=== PATIENT | male | born 1975 | race African-American/Black ===

== ENCOUNTER 2017-10-26 15:52 | Emergency (ER) | payer OTHER ==
[~2017-10-26] VITALS: Ht 175.3 cm; Wt 72.0 kg
[2017-10-26] MEDS: POTASSIUM CHLORIDE 8 MEQ TABLET.SA PO SCH (01:53)
[~2017-10-26 15:52] MED LIST: ACET-3161 PO; AMLO10TA80 PO; CIPR-213 PO; PANT20TA3 PO
[2017-10-26] MEDS ORDERED: SODIUM CHLORIDE 0.9% 1,000 ML IV ONE (17:04)
[2017-10-26] MEDS ORDERED: KETOROLAC 30MG/ML VIAL IV STA (17:04)
[2017-10-26] MEDS ORDERED: MORPHINE SULFATE 4 MG/ML CPJ (NOT FOR IM USE) IV STA (17:04)
[2017-10-26] MEDS ORDERED: ONDANSETRON HCL 4MG/2ML VIAL IV STA (17:04)
[2017-10-26] MEDS ORDERED: LIDOCAINE HCL 1%/EPI 1:200,000 30 ML VIAL MC ONE (17:15)
[2017-10-26] MEDS ORDERED: LIDOCAINE/EPINEPHR/TETRACAINE 3ML TP ONE (17:15)
[2017-10-26] MEDS ORDERED: TETANUS, DIPHTHERIA, PERTUSSIS VAC/PF 0.5ML (>7YR OLD) IM ONE (17:15)
[2017-10-26] MEDS ORDERED: BACITRACIN ZINC OINT UDPKT TOP ONE (17:15)
[2017-10-26] MEDS ORDERED: VANCOMYCIN 1 G PREMIX 200 ML IV ONE (17:15)
[2017-10-26] MEDS ORDERED: PIPERACILLIN/TAZ 3.375G PREMIX 50 ML IV ONE (17:15)
[2017-10-26] MEDS ORDERED: LEVOFLOXACIN 750MG PREMIX 150 ML IV ONE (17:45)
[2017-10-26 19:05] LABS: HEMATOCRIT. 32.6 % (42.0-52.0); HEMOGLOBIN. 10.6 g/dL (14.0-18.0); MEAN CORPUSCULAR HEMOGLOBIN 29.2 pg (28.0-32.0); MEAN CORPUSCULAR VOLUME 89.9 fL (80.0-94.0); MEAN PLATELET VOLUME 8.7 fl (7.4-10.4); PLATELET 328 x1000/uL (130-400); RED BLOOD CELL COUNT 3.63 mill/uL (4.7-6.1); RED CELL DISTRIBUTION WIDTH 13.9 % (11.6-14.6)
[2017-10-26 19:07] LABS: CHLORIDE 100 mEq/L (98-107)
[2017-10-26 19:17] LABS: ETHANOL BLOOD < 10 mg/dL
[2017-10-26] MEDS ORDERED: MORPHINE SULFATE 4 MG/ML CPJ (NOT FOR IM USE) IV ONE ×2 (19:45→21:00)
[2017-10-26 20:48] LABS: PLATELET ESTIMATE NORMAL
[2017-10-26 20:51] LABS: INR 1.2; PROTHROMBIN TIME 12.9 sec (9.4-11.6)
[2017-10-27] MEDS: POTASSIUM CHLORIDE 8 MEQ TABLET.SA PO SCH ×2 (01:53→03:09)
[2017-10-27] MEDS ORDERED: MORPHINE SULFATE 4 MG/ML CPJ (NOT FOR IM USE) IV ONE ×2 (02:00→06:00)
[2017-10-27] MEDS ORDERED: ONDANSETRON HCL 4MG/2ML VIAL IV ONE ×2 (02:00→06:00)
[2017-10-27 06:35] VITALS: BP 119/79
[2017-10-27 06:40] LABS: CLARITY URINE CLEAR (CLEAR); COLOR URINE YELLOW (YELLOW); KETONES URINE 2+ (NEGATIVE); LEUKOCYTE ESTERASE URINE NEGATIVE (NEGATIVE); NITRITE URINE NEGATIVE (NEGATIVE); OCCULT BLOOD URINE NEGATIVE (NEGATIVE); PROTEIN URINE TRACE (NEGATIVE); SPECIFIC GRAVITY URINE 1.023 (1.005-1.030)
[2017-10-27 07:04] LABS: *AMPHETAMINES SCREEN URINE NEGATIVE (NEGATIVE); *BARBITURATES SCREEN URINE NEGATIVE (NEGATIVE); *BENZODIAZEPINES SCREEN URINE NEGATIVE (NEGATIVE); *COCAINE SCREEN URINE NEGATIVE (NEGATIVE); CANNABINOID URINE SCREEN PRESUMTIVE POSITIVE (NEGATIVE); METHADONE URINE SCREEN NEGATIVE (NEGATIVE); OPIATES URINE SCREEN PRESUMTIVE POSITIVE (NEGATIVE)
[2017-10-27 07:05] LABS: PHENCYCLIDINE URINE SCREEN NEGATIVE (NEGATIVE)
== END 2017-10-27 06:40 | disposition short-term general hospital (02) ==
LOC: ER 16:22
DX: L02.01 Cutaneous abscess of face (principal); M27.2 Inflammatory conditions of jaws; D72.829 Elevated white blood cell count, unspecified; I10 Essential (primary) hypertension; E11.9 Type 2 diabetes mellitus without complications; Z88.6 Allergy status to analgesic agent; Z75.1 Person awaiting admission to adequate facility elsewhere
CPT/HCPCS: 10061; 36415; 70486; 80053; 80305; 81003; 82962; 83605; 83690; 84484; 85025; 85610; 87040; 87086; 90471; 90715; 93005; 96365; 96366; 96367; 96375; 96376; 99285; G0482; J1885; J1956; J2270; J2405; J2543; J3370; J7030; Z7610

== ENCOUNTER 2018-05-30 11:29 | Inpatient (IN) | payer OTHER ==
[~2018-05-30] VITALS: Ht 167.6 cm; Wt 66.7 kg
[2018-05-30 12:53] LABS: MEAN CORPUSCULAR VOLUME 59.2 fL (80.0-94.0); MEAN PLATELET VOLUME 6.6 fl (7.4-10.4); PLATELET 423 x1000/uL (130-400); RED BLOOD CELL COUNT 2.14 mill/uL (4.7-6.1); RED CELL DISTRIBUTION WIDTH 17.7 % (11.6-14.6)
[2018-05-30 12:57] LABS: CHLORIDE 105 mEq/L (98-107)
[2018-05-30 12:59] LABS: HEMATOCRIT. 12.7 % (42.0-52.0); HEMOGLOBIN. 3.6 g/dL (14.0-18.0); INR 1.1; PARTIAL THROMBOPLASTIN TIME 24.2 sec (23.4-31.0); PROTHROMBIN TIME 11.2 sec (9.1-11.1)
[2018-05-30 13:15] LABS: NUCLEATED RED BLOOD CELLS 2 /100 WBC
[2018-05-30 13:16] LABS: PLATELET ESTIMATE SLIGHTLY INCREASED
[2018-05-30] MEDS ORDERED: ONDANSETRON HCL 4MG/2ML INJ IV STA (13:16)
[2018-05-30] MEDS ORDERED: MORPHINE SULFATE 4 MG/ML CPJ (NOT FOR IM USE) IV STA (13:16)
[2018-05-30] MEDS ORDERED: PANTOPRAZOLE SODIUM 40 MG/VIAL IV STA (13:16)
[2018-05-30 13:25] LABS: TOTAL IRON BINDING CAPACITY 384 ug/dL (250-450)
[2018-05-30] MEDS ORDERED: LORAZEPAM 2MG/ML CPJ IV PRN (13:30)
[2018-05-30] MEDS ORDERED: GUAIFENESIN 200MG/10ML SUGAR FREE UDC PO PRN (13:30)
[2018-05-30] MEDS ORDERED: ACETAMINOPHEN 325MG TABLET PO PRN (13:30)
[2018-05-30] MEDS ORDERED: DOCUSATE SODIUM 100MG CAPSULE PO PRN (13:30)
[2018-05-30] MEDS ORDERED: MAGNESIUM/ALUMINUM HYDROXIDE/SIMETHICONE 30ML UDC PO PRN (13:30)
[2018-05-30] MEDS ORDERED: CLONIDINE 0.1MG TABLET PO PRN (13:30)
[2018-05-30] MEDS ORDERED: ONDANSETRON HCL 4MG/2ML INJ IV PRN (13:30)
[2018-05-30] MEDS ORDERED: IPRATROPIUM/ALBUTEROL 0.5-3(2.5)MG/3ML NEB INH PRN (13:30)
[2018-05-30] MEDS ORDERED: NA PHOS,M-B/NA PHOS,DI-BA ENEMA 118ML PR PRN (13:30)
[2018-05-30] MEDS ORDERED: BISACODYL 5MG TABLET PO PRN (16:30)
[2018-05-30] MEDS: MORPHINE SULFATE 4 MG/ML CPJ (NOT FOR IM USE) IV PRN (18:04)
[2018-05-30 22:00] VITALS: BP 112/84
[2018-05-30] MEDS ORDERED: METOCLOPRAMIDE HCL 5MG TABLET PO NR (22:00)
[2018-05-30] MEDS ORDERED: SORBITOL 70% SOLN 30ML PO NR (22:00)
[2018-05-30] MEDS ORDERED: BISACODYL 5MG TABLET PO NR (22:00)
[2018-05-30 22:39] VITALS: BP 117/76
[2018-05-30] MEDS: DIPHENHYDRAMINE 50MG/ML VIAL IV PRN (22:57)
[2018-05-30] MEDS: HYDROCODONE/ACETAMINOPHEN 5/325MG TABLET PO PRN (22:57)
[2018-05-30] MEDS: PANTOPRAZOLE SODIUM 40 MG/VIAL IV SCH (22:57)
[2018-05-30] MEDS: SODIUM CHLORIDE 0.45% 1,000 ML IV SCH (22:57)
[2018-05-31] VITALS (19 sets, daily range): BP systolic 112–130; BP diastolic 56–85
[2018-05-31 00:31] LABS: MEAN CORPUSCULAR VOLUME 69.3 fL (80.0-94.0); MEAN PLATELET VOLUME 6.9 fl (7.4-10.4); PLATELET 355 x1000/uL (130-400); RED CELL DISTRIBUTION WIDTH 29.4 % (11.6-14.6)
[2018-05-31 00:44] LABS: HEMATOCRIT. 18.1 % (42.0-52.0)
[2018-05-31 00:52] LABS: HEMOGLOBIN. 5.5 g/dL (14.0-18.0)
[2018-05-31] MEDS: MORPHINE SULFATE 4 MG/ML CPJ (NOT FOR IM USE) IV PRN ×4 (01:23→21:48)
[2018-05-31] MEDS ORDERED: BISACODYL 5MG TABLET PO NR ×2 (02:00→11:45)
[2018-05-31] MEDS ORDERED: METOCLOPRAMIDE HCL 5MG TABLET PO NR (02:00)
[2018-05-31] MEDS ORDERED: SORBITOL 70% SOLN 30ML PO NR ×2 (02:00→11:45)
[2018-05-31] MEDS ORDERED: ASPI-1158 PO (05:43)
[2018-05-31] MEDS ORDERED: GLIP5TAB12 PO (05:43)
[2018-05-31] MEDS ORDERED: METF-416 PO (05:43)
[2018-05-31 07:31] LABS: INR 1.1; PARTIAL THROMBOPLASTIN TIME 23.6 sec (23.4-31.0); PROTHROMBIN TIME 11.1 sec (9.1-11.1)
[2018-05-31 07:37] LABS: HEMATOCRIT. 24.3 % (42.0-52.0); HEMOGLOBIN. 7.7 g/dL (14.0-18.0); MEAN CORPUSCULAR HEMOGLOBIN 23.5 pg (28.0-32.0); MEAN CORPUSCULAR VOLUME 73.8 fL (80.0-94.0); MEAN PLATELET VOLUME 7.5 fl (7.4-10.4); PLATELET 432 x1000/uL (130-400); RED BLOOD CELL COUNT 3.29 mill/uL (4.7-6.1); RED CELL DISTRIBUTION WIDTH 28.8 % (11.6-14.6)
[2018-05-31 07:43] LABS: CHLORIDE 113 mEq/L (98-107)
[2018-05-31 07:45] LABS: CHLORIDE 113 mEq/L (98-107)
[2018-05-31 07:54] LABS: HDL CHOLESTEROL 38 mg/dL (40-59)
[2018-05-31 07:55] LABS: LDL CHOLESTEROL 90 mg/dL (5-100)
[2018-05-31] MEDS: PANTOPRAZOLE SODIUM 40 MG/VIAL IV SCH ×2 (08:23→21:47)
[2018-05-31] MEDS: IRON SUCROSE COMPLEX 100 MG/5 ML ML IV SCH (08:24)
[2018-05-31] MEDS ORDERED: METOCLOPRAMIDE HCL 10MG/2ML VIAL IV NR ×2 (11:45→13:00)
[2018-05-31] MEDS: DIPHENHYDRAMINE 50MG/ML VIAL IV PRN ×2 (12:25→18:22)
[2018-05-31] MEDS: SODIUM CHLORIDE 0.45% 1,000 ML IV SCH (21:47)
[2018-06-01] VITALS (11 sets, daily range): BP systolic 112–132; BP diastolic 40–87
[2018-06-01] MEDS: MORPHINE SULFATE 4 MG/ML CPJ (NOT FOR IM USE) IV PRN ×5 (01:49→21:39)
[2018-06-01 06:53] LABS: CHLORIDE 105 mEq/L (98-107)
[2018-06-01 07:08] LABS: HEMATOCRIT. 25.3 % (42.0-52.0); HEMOGLOBIN. 8.1 g/dL (14.0-18.0); MEAN CORPUSCULAR HEMOGLOBIN 24.4 pg (28.0-32.0); MEAN CORPUSCULAR VOLUME 75.9 fL (80.0-94.0); MEAN PLATELET VOLUME 7.7 fl (7.4-10.4); PLATELET 336 x1000/uL (130-400); RED BLOOD CELL COUNT 3.33 mill/uL (4.7-6.1); RED CELL DISTRIBUTION WIDTH 30.7 % (11.6-14.6)
[2018-06-01] MEDS ORDERED: POTASSIUM CHLORIDE 20MEQ/PACKET PO SCH (07:45)
[2018-06-01] MEDS: PANTOPRAZOLE SODIUM 40 MG/VIAL IV SCH ×2 (08:01→20:05)
[2018-06-01] MEDS: IRON SUCROSE COMPLEX 100 MG/5 ML ML IV SCH (08:01)
[2018-06-01] MEDS: DEXT 5%/0.9% NACL 1,000 ML IV SCH ×2 (08:01→17:45)
[2018-06-01] MEDS: DIPHENHYDRAMINE 50MG/ML VIAL IV PRN ×4 (09:57→21:38)
[2018-06-01] MEDS ORDERED: SIMETHICONE 40 MG/0.6 ML 30ML ONE (10:26)
[2018-06-01] MEDS ORDERED: FENTANYL CITRATE/PF 50MCG/ML 2ML VIAL ONE (10:50)
[2018-06-01] MEDS ORDERED: PROPOFOL 200MG/20ML VIAL IV ONE ×2 (10:51→11:03)
[2018-06-01] MEDS ORDERED: MIDAZOLAM HCL 2 MG/2 ML VIAL ONE (10:51)
[2018-06-01 13:18] LABS: PLATELET ESTIMATE INCREASED
[2018-06-01 14:07] LABS: NUCLEATED RED BLOOD CELLS 2 /100 WBC; PLATELET ESTIMATE NORMAL
[2018-06-01 19:45] LABS: PLATELET ESTIMATE NORMAL
[2018-06-01 20:10] LABS: AMYLASE 53 IU/L (25-115)
[2018-06-02] VITALS (11 sets, daily range): BP systolic 101–137; BP diastolic 53–79
[2018-06-02] MEDS: DIPHENHYDRAMINE 50MG/ML VIAL IV PRN ×5 (03:08→20:38)
[2018-06-02] MEDS: MORPHINE SULFATE 4 MG/ML CPJ (NOT FOR IM USE) IV PRN ×2 (03:12→08:22)
[2018-06-02] MEDS: DEXT 5%/0.9% NACL 1,000 ML IV SCH (03:45)
[2018-06-02] MEDS: IRON SUCROSE COMPLEX 100 MG/5 ML ML IV SCH (08:21)
[2018-06-02] MEDS: PANTOPRAZOLE SODIUM 40 MG/VIAL IV SCH ×2 (08:21→20:38)
[2018-06-02] MEDS: HYDROCODONE/ACETAMINOPHEN 5/325MG TABLET PO PRN (12:29)
[2018-06-02] MEDS: HYDROCODONE/ACETAMINOPHEN 10/325MG TABLET PO PRN ×2 (16:28→20:42)
[2018-06-02 19:37] LABS: HEMATOCRIT 25.9 % (42.0-52.0); HEMOGLOBIN 8.3 g/dL (14.0-18.0); MEAN CORPUSCULAR HEMOGLOBIN 24.6 pg (28.0-32.0); PLATELET 354 x1000/uL (130-400); RED BLOOD CELL COUNT 3.36 mill/uL (4.7-6.1); RED CELL DISTRIBUTION WIDTH 31.9 % (11.6-14.6)
[2018-06-03] VITALS (9 sets, daily range): BP systolic 117–148; BP diastolic 66–95
[2018-06-03] MEDS: DIPHENHYDRAMINE 50MG/ML VIAL IV PRN ×2 (01:17→06:52)
[2018-06-03] MEDS: HYDROCODONE/ACETAMINOPHEN 10/325MG TABLET PO PRN (06:54)
[2018-06-03 07:00] LABS: BASOPHILS % 0.9 % (0.0-2.0); EOSINOPHILS % 2.7 % (0.0-5.0); HEMATOCRIT. 25.8 % (42.0-52.0); HEMOGLOBIN. 8.1 g/dL (14.0-18.0); LYMPHOCYTES % 23.8 % (20.0-50.0); MEAN CORPUSCULAR HEMOGLOBIN 25.4 pg (28.0-32.0); MEAN CORPUSCULAR VOLUME 81.2 fL (80.0-94.0); MEAN PLATELET VOLUME 7.4 fl (7.4-10.4); MONOCYTES % 11.3 % (2.0-8.0); NEUTROPHILS % 61.3 % (40.0-76.0); PLATELET 323 x1000/uL (130-400); RED BLOOD CELL COUNT 3.17 mill/uL (4.7-6.1); RED CELL DISTRIBUTION WIDTH 32.7 % (11.6-14.6)
[2018-06-03 07:51] LABS: CHLORIDE 106 mEq/L (98-107)
[2018-06-03] MEDS: PANTOPRAZOLE SODIUM 40 MG/VIAL IV SCH (09:59)
[2018-06-03] MEDS: IRON SUCROSE COMPLEX 100 MG/5 ML ML IV SCH (09:59)
== END 2018-06-03 14:20 | disposition home or self-care (01) | DRG 241 ==
LOC: ER 11:29 → EDBEDREQ 13:02 → 3WST 13:18 → EDBEDREQSVC 13:21 → EDBEDREQ 13:21 → EDBEDREQTM 13:21 → ENRESERV 20:11
PROVIDERS: ADMIT Internal Medicine; ATTEND Internal Medicine
PROC: 30233N1 Transfusion of Nonautologous Red Blood Cells into Peripheral Vein, Percutaneous Approach (ICD-10-PCS; principal; 2018-05-30)
PROC: 0DB68ZX Excision of Stomach, Via Natural or Artificial Opening Endoscopic, Diagnostic (ICD-10-PCS; 2018-06-01)
PROC: 0DBH8ZZ Excision of Cecum, Via Natural or Artificial Opening Endoscopic (ICD-10-PCS; 2018-06-01)
DX: K29.71 Gastritis, unspecified, with bleeding (principal); K86.0 Alcohol-induced chronic pancreatitis; D50.9 Iron deficiency anemia, unspecified; D12.0 Benign neoplasm of cecum; E11.9 Type 2 diabetes mellitus without complications; F12.90 Cannabis use, unspecified, uncomplicated; I10 Essential (primary) hypertension; K64.9 Unspecified hemorrhoids; K21.9 Gastro-esophageal reflux disease without esophagitis; G89.4 Chronic pain syndrome; F17.210 Nicotine dependence, cigarettes, uncomplicated; Z79.82 Long term (current) use of aspirin; Z79.84 Long term (current) use of oral hypoglycemic drugs; Z88.6 Allergy status to analgesic agent; Z79.2 Long term (current) use of antibiotics; Z79.899 Other long term (current) drug therapy
CPT/HCPCS: 36415; 36430; 71045; 74176; 80048; 80061; 82150; 82270; 83540; 83550; 83615; 83735; 83880; 84484; 85027; 85044; 86850; 86900; 86920; 88305; 88312; 88313; 93005; 96365; 96375; 99291; C9113; J1200; J2060; J2250; J2270; J2405; J2704; J2765; J3010; J7042; J7050; J8597; P9016

== ENCOUNTER 2018-08-02 14:16 | Inpatient (IN) | payer OTHER ==
[~2018-08-02] VITALS: Ht 172.7 cm; Wt 61.3 kg
[~2018-08-02 14:16] MED LIST changes: +ASPI-1158 PO; -CIPR-213 PO; +GLIP5TAB12 PO; +METF-416 PO
[2018-08-02 15:34] LABS: MEAN CORPUSCULAR HEMOGLOBIN 18.6 pg (28.0-32.0); MEAN PLATELET VOLUME 7.4 fl (7.4-10.4); PLATELET 524 x1000/uL (130-400); RED BLOOD CELL COUNT 1.83 mill/uL (4.7-6.1); RED CELL DISTRIBUTION WIDTH 24.6 % (11.6-14.6)
[2018-08-02 15:38] LABS: CHLORIDE 107 mEq/L (98-107)
[2018-08-02 15:39] LABS: INR 1.2; PROTHROMBIN TIME 12.6 sec (9.6-11.0)
[2018-08-02 15:41] LABS: HEMOGLOBIN. 3.4 g/dL (14.0-18.0)
[2018-08-02 15:42] LABS: HEMATOCRIT. 12.1 % (42.0-52.0)
[2018-08-02 16:43] LABS: PLATELET ESTIMATE INCREASED
[2018-08-02] MEDS ORDERED: DEXTROSE 50% WATER 50ML SYRINGE IV PRN (17:45)
[2018-08-02] MEDS ORDERED: MAGNESIUM/ALUMINUM HYDROXIDE/SIMETHICONE 30ML UDC PO PRN (17:45)
[2018-08-02] MEDS ORDERED: HYDROCODONE/ACETAMINOPHEN 5/325MG TABLET PO PRN (17:45)
[2018-08-02] MEDS ORDERED: ONDANSETRON HCL 4MG/2ML INJ IV PRN (17:45)
[2018-08-02] MEDS ORDERED: CLONIDINE 0.1MG TABLET PO PRN (17:45)
[2018-08-02] MEDS ORDERED: ACETAMINOPHEN 325MG TABLET PO PRN (17:45)
[2018-08-02] MEDS ORDERED: DOCUSATE SODIUM 100MG CAPSULE PO PRN (17:45)
[2018-08-02] MEDS ORDERED: LEVOFLOXACIN 500MG PREMIX 100 ML IV SCH (17:45)
[2018-08-02] MEDS ORDERED: LORAZEPAM 2MG/ML CPJ IV PRN (17:45)
[2018-08-02] MEDS ORDERED: GUAIFENESIN 200MG/10ML SUGAR FREE UDC PO PRN (17:45)
[2018-08-02] MEDS: INSULIN LISPRO 100 UNITS/ML SUBCUT SCH (18:20)
[2018-08-02] MEDS ORDERED: IPRATROPIUM/ALBUTEROL 0.5-3(2.5)MG/3ML NEB INH PRN ×2 (23:18→23:19)
[2018-08-02 23:20] LABS: CREATINE KINASE 73 IU/L (39-308)
[2018-08-02 23:21] LABS: CREATINE KINASE MB FRACTION < 1.0 ng/mL (0.5-3.6)
[2018-08-02] MEDS: HYDROMORPHONE HCL/PF 2MG/ML CPJ IV PRN (23:27)
[2018-08-03] VITALS (13 sets, daily range): BP systolic 118–148; BP diastolic 62–82
[2018-08-03 00:18] LABS: MEAN CORPUSCULAR HEMOGLOBIN 21.4 pg (28.0-32.0); MEAN CORPUSCULAR VOLUME 71.4 fL (80.0-94.0); MEAN PLATELET VOLUME 7.4 fl (7.4-10.4); PLATELET 371 x1000/uL (130-400); RED BLOOD CELL COUNT 2.11 mill/uL (4.7-6.1); RED CELL DISTRIBUTION WIDTH 25.1 % (11.6-14.6)
[2018-08-03 00:23] LABS: HEMATOCRIT. 15.1 % (42.0-52.0); HEMOGLOBIN. 4.5 g/dL (14.0-18.0)
[2018-08-03 00:46] LABS: PLATELET ESTIMATE NORMAL
[2018-08-03] MEDS ORDERED: HYDRALAZINE 20MG/ML VIAL IV PRN (01:48)
[2018-08-03 02:29] LABS: HEMATOCRIT 18.6 % (42.0-52.0); HEMOGLOBIN 5.8 g/dL (14.0-18.0)
[2018-08-03] MEDS: HYDROMORPHONE HCL/PF 2MG/ML CPJ IV PRN ×5 (02:50→19:53)
[2018-08-03] MEDS ORDERED: DIPH25CA83 PO (03:36)
[2018-08-03] MEDS: LEVOFLOXACIN 500MG PREMIX 100 ML IV SCH (03:43)
[2018-08-03 05:43] LABS: MEAN CORPUSCULAR HEMOGLOBIN 24.2 pg (28.0-32.0); MEAN CORPUSCULAR VOLUME 74.9 fL (80.0-94.0); MEAN PLATELET VOLUME 7.6 fl (7.4-10.4); PLATELET 342 x1000/uL (130-400); RED BLOOD CELL COUNT 2.18 mill/uL (4.7-6.1); RED CELL DISTRIBUTION WIDTH 28.1 % (11.6-14.6)
[2018-08-03 06:01] LABS: CHLORIDE 107 mEq/L (98-107)
[2018-08-03 06:14] LABS: CREATINE KINASE 61 IU/L (39-308)
[2018-08-03 06:16] LABS: CREATINE KINASE MB FRACTION < 1.0 ng/mL (0.5-3.6); HEMATOCRIT. 16.4 % (42.0-52.0); HEMOGLOBIN. 5.3 g/dL (14.0-18.0)
[2018-08-03] MEDS: BLOOD SUGAR DIAGNOSTIC STRIP TEST SCH ×4 (06:49→21:00)
[2018-08-03] MEDS: DIPHENHYDRAMINE 50MG/ML VIAL IV PRN (06:56)
[2018-08-03 10:46] LABS: PLATELET ESTIMATE NORMAL
[2018-08-03] MEDS: INSULIN LISPRO 100 UNITS/ML SUBCUT SCH ×3 (12:16→21:00)
[2018-08-03] MEDS: PANTOPRAZOLE 40MG DR TABLET PO SCH (17:36)
[2018-08-03 19:15] LABS: HEMATOCRIT 21.3 % (42.0-52.0)
[2018-08-03 19:24] LABS: HEMOGLOBIN 6.9 g/dL (14.0-18.0)
[2018-08-04] VITALS (13 sets, daily range): BP systolic 120–154; BP diastolic 62–87
[2018-08-04] MEDS: HYDROMORPHONE HCL/PF 2MG/ML CPJ IV PRN ×8 (00:01→23:02)
[2018-08-04] MEDS: LEVOFLOXACIN 500MG PREMIX 100 ML IV SCH (03:06)
[2018-08-04] MEDS: DIPHENHYDRAMINE 50MG/ML VIAL IV PRN ×2 (05:20→20:39)
[2018-08-04] MEDS: PANTOPRAZOLE 40MG DR TABLET PO SCH (06:25)
[2018-08-04] MEDS: BLOOD SUGAR DIAGNOSTIC STRIP TEST SCH ×4 (06:34→20:32)
[2018-08-04 08:12] LABS: HEMATOCRIT 24.4 % (42.0-52.0); HEMOGLOBIN 7.8 g/dL (14.0-18.0); MEAN CORPUSCULAR HEMOGLOBIN 25.3 pg (28.0-32.0); MEAN CORPUSCULAR VOLUME 79.3 fL (80.0-94.0); PLATELET 299 x1000/uL (130-400); RED BLOOD CELL COUNT 3.08 mill/uL (4.7-6.1); RED CELL DISTRIBUTION WIDTH 26.2 % (11.6-14.6)
[2018-08-04] MEDS: INSULIN LISPRO 100 UNITS/ML SUBCUT SCH ×4 (08:40→20:39)
[2018-08-04 08:57] LABS: TOTAL IRON BINDING CAPACITY 325 ug/dL (250-450)
[2018-08-04 08:59] LABS: HAPTOGLOBIN 96 mg/dL (30-200)
[2018-08-04 10:54] LABS: HEMATOCRIT 27.1 % (42.0-52.0); HEMOGLOBIN 8.9 g/dL (14.0-18.0); MEAN CORPUSCULAR HEMOGLOBIN 26.1 pg (28.0-32.0); MEAN CORPUSCULAR VOLUME 79.7 fL (80.0-94.0); PLATELET 300 x1000/uL (130-400)
[2018-08-05] MEDS: LEVOFLOXACIN 500MG PREMIX 100 ML IV SCH (02:34)
[2018-08-05] MEDS: HYDROMORPHONE HCL/PF 2MG/ML CPJ IV PRN ×2 (02:35→06:08)
[2018-08-05 04:00] VITALS: BP 130/72
[2018-08-05] MEDS: BLOOD SUGAR DIAGNOSTIC STRIP TEST SCH (06:08)
[2018-08-05] MEDS: PANTOPRAZOLE 40MG DR TABLET PO SCH (06:20)
[2018-08-05 06:48] LABS: EOSINOPHILS % 1.7 % (0.0-5.0); HEMATOCRIT. 29.8 % (42.0-52.0); HEMOGLOBIN. 9.6 g/dL (14.0-18.0); LYMPHOCYTES % 23.1 % (20.0-50.0); MEAN CORPUSCULAR HEMOGLOBIN 26.1 pg (28.0-32.0); MEAN CORPUSCULAR VOLUME 81.1 fL (80.0-94.0); MEAN PLATELET VOLUME 7.5 fl (7.4-10.4); MONOCYTES % 11.5 % (2.0-8.0); NEUTROPHILS % 62.7 % (40.0-76.0); PLATELET 293 x1000/uL (130-400); RED BLOOD CELL COUNT 3.67 mill/uL (4.7-6.1)
[2018-08-05 06:58] LABS: CHLORIDE 107 mEq/L (98-107)
[2018-08-05] MEDS: DIPHENHYDRAMINE 50MG/ML VIAL IV PRN (07:31)
[2018-08-05] MEDS: INSULIN LISPRO 100 UNITS/ML SUBCUT SCH (07:39)
[2018-08-05 08:00] VITALS: BP 113/60
[2018-08-05 10:10] VITALS: BP 113/60
== END 2018-08-05 11:05 | disposition home or self-care (01) | DRG 663 ==
LOC: ER 14:37 → 6WST 17:25 → EDBEDREQ 17:27 → ENRESERV 20:48
PROVIDERS: ADMIT Internal Medicine; ATTEND Internal Medicine
PROC: 30233N1 Transfusion of Nonautologous Red Blood Cells into Peripheral Vein, Percutaneous Approach (ICD-10-PCS; principal; 2018-08-02)
DX: D50.9 Iron deficiency anemia, unspecified (principal); K86.3 Pseudocyst of pancreas; E11.9 Type 2 diabetes mellitus without complications; D72.829 Elevated white blood cell count, unspecified; I10 Essential (primary) hypertension; F17.210 Nicotine dependence, cigarettes, uncomplicated; K86.1 Other chronic pancreatitis; Z79.84 Long term (current) use of oral hypoglycemic drugs; Z79.899 Other long term (current) drug therapy; Z79.82 Long term (current) use of aspirin; Z88.6 Allergy status to analgesic agent; Z71.6 Tobacco abuse counseling; Z72.89 Other problems related to lifestyle
CPT/HCPCS: 36415; 71045; 80048; 82550; 82553; 82728; 82962; 83010; 83540; 83550; 83615; 83880; 84484; 85014; 85018; 85027; 86850; 86880; 86900; 86920; 93005; 93970; 96374; 96375; 99285; J1170; J1200; J1815; J1956; J7040; J7050; P9016; P9021

== ENCOUNTER 2018-09-18 09:56 | Inpatient (IN) | payer OTHER ==
[~2018-09-18] VITALS: Ht 167.6 cm; Wt 59.4 kg
[2018-09-18] VITALS (27 sets, daily range): BP systolic 104–145; BP diastolic 37–93
[~2018-09-18 09:56] MED LIST changes: +DIPH25CA83 PO
[2018-09-18] MEDS ORDERED: SODIUM CHLORIDE 0.9% 1,000 ML IV ONE (10:02)
[2018-09-18] MEDS ORDERED: SODIUM CHLORIDE 0.9% 1000ML BAG (SEPSIS BOLUS) IV ONE (10:15)
[2018-09-18] MEDS ORDERED: FAMOTIDINE 20MG/2ML VIAL IV ONE (10:15)
[2018-09-18 10:24] LABS: MEAN CORPUSCULAR HEMOGLOBIN 23.1 pg (28.0-32.0); MEAN CORPUSCULAR VOLUME 87.5 fL (80.0-94.0); MEAN PLATELET VOLUME 9.4 fl (7.4-10.4); PLATELET 307 x1000/uL (130-400); RED BLOOD CELL COUNT 2.16 mill/uL (4.7-6.1)
[2018-09-18 10:30] LABS: CHLORIDE 101 mEq/L (98-107)
[2018-09-18 10:32] LABS: INR 1.5; PROTHROMBIN TIME 14.9 sec (9.6-11.0)
[2018-09-18 10:35] LABS: ETHANOL BLOOD < 10 mg/dL; HEMATOCRIT. 18.9 % (42.0-52.0)
[2018-09-18 10:42] LABS: CLARITY URINE CLOUDY (CLEAR); COLOR URINE YELLOW (YELLOW); KETONES URINE 3+ (NEGATIVE); LEUKOCYTE ESTERASE URINE NEGATIVE (NEGATIVE); NITRITE URINE NEGATIVE (NEGATIVE); OCCULT BLOOD URINE 1+ (NEGATIVE); PROTEIN URINE TRACE (NEGATIVE); SPECIFIC GRAVITY URINE 1.022 (1.005-1.030); UROBILINOGEN URINE 0.2 E.U./dL (0.2-1.0)
[2018-09-18] MEDS ORDERED: PIPERACILLIN/TAZ 3.375G PREMIX 50 ML IV ONE (10:45)
[2018-09-18 10:50] LABS: PLATELET ESTIMATE NORMAL
[2018-09-18 10:54] LABS: METHADONE URINE SCREEN NEGATIVE (NEGATIVE)
[2018-09-18 10:55] LABS: *BARBITURATES SCREEN URINE NEGATIVE (NEGATIVE)
[2018-09-18 10:56] LABS: *BENZODIAZEPINES SCREEN URINE NEGATIVE (NEGATIVE)
[2018-09-18 10:57] LABS: CANNABINOID URINE SCREEN PRESUMTIVE POSITIVE (NEGATIVE)
[2018-09-18 10:59] LABS: *AMPHETAMINES SCREEN URINE NEGATIVE (NEGATIVE); PHENCYCLIDINE URINE SCREEN NEGATIVE (NEGATIVE)
[2018-09-18 11:01] LABS: *COCAINE SCREEN URINE NEGATIVE (NEGATIVE); OPIATES URINE SCREEN NEGATIVE (NEGATIVE)
[2018-09-18 11:18] LABS: BG BASE EXCESS -26.1 mmol/L (-2.0-2.0); BG DEOXYHEMOGLOBIN 2.1 % (0.0-5.0); BG FRACTION INSPIRED OXYGEN 28; BG HCO3 ACT 3.3 mmol/L (22.0-26.0); BG METHEMOGLOBIN 0.5 % (0.0-1.5); BG OXYGEN SATURATION 97.9 % (92.0-98.5); BG OXYHEMOGLOBIN 96.4 % (94.0-97.0); BG PCO2 14.8 mmHg (35.0-45.0); BG PO2 165.7 mmHg (75.0-100.0); BG SAMPLE SITE RIGHT BRACHIAL; BG TOTAL HEMOGLOBIN 4.9 g/dL (12.0-18.0); BG VENT MODE NASAL CANNULA
[2018-09-18 11:32] LABS: PHOSPHORUS 10.4 mg/dL (2.5-4.9)
[2018-09-18] MEDS ORDERED: INSULIN REGULAR (DRIP) 100 UNITS in SODIUM CHLORIDE 0.9% 100 ML IV SCH (12:00)
[2018-09-18] MEDS ORDERED: HYDROCODONE/ACETAMINOPHEN 5/325MG TABLET PO PRN (12:00)
[2018-09-18] MEDS ORDERED: MAGNESIUM/ALUMINUM HYDROXIDE/SIMETHICONE 30ML UDC PO PRN (12:00)
[2018-09-18] MEDS ORDERED: CLONIDINE 0.1MG TABLET PO PRN (12:00)
[2018-09-18] MEDS ORDERED: ACETAMINOPHEN 325MG TABLET PO PRN (12:00)
[2018-09-18] MEDS ORDERED: NA PHOS,M-B/NA PHOS,DI-BA ENEMA 118ML PR PRN (12:00)
[2018-09-18] MEDS ORDERED: DOCUSATE SODIUM 100MG CAPSULE PO PRN (12:00)
[2018-09-18] MEDS ORDERED: SODIUM CHLORIDE 0.45% 1,000 ML IV SCH (12:00)
[2018-09-18] MEDS ORDERED: DIPHENHYDRAMINE 50MG/ML VIAL IV PRN (12:00)
[2018-09-18] MEDS ORDERED: GUAIFENESIN 200MG/10ML SUGAR FREE UDC PO PRN (12:00)
[2018-09-18] MEDS ORDERED: INSULIN REGULAR (DRIP) 100 UNITS in SODIUM CHLORIDE 0.9% 100 ML IV ONE (12:00)
[2018-09-18] MEDS ORDERED: IPRATROPIUM/ALBUTEROL 0.5-3(2.5)MG/3ML NEB INH PRN (12:00)
[2018-09-18] MEDS ORDERED: LIDOCAINE HCL 1% 20ML VIAL (Pyxis) INJ ONE (12:50)
[2018-09-18] MEDS ORDERED: DEXTROSE 50% WATER 50ML SYRINGE IV PRN ×2 (14:45)
[2018-09-18] MEDS: BLOOD SUGAR DIAGNOSTIC STRIP TEST SCH ×10 (14:45→23:43)
[2018-09-18] MEDS: INSULIN REGULAR (DRIP) 100 UNITS in SODIUM CHLORIDE 0.9% 100 ML IV SCH (15:10)
[2018-09-18] MEDS: SODIUM BICARBONATE 100 MEQ in SODIUM CHLORIDE 0.45% 1,000 ML IV SCH (15:11)
[2018-09-18] MEDS ORDERED: PANTOPRAZOLE SODIUM 40 MG/VIAL IV SCH (16:15)
[2018-09-18 16:19] LABS: HEMATOCRIT 24.9 % (42.0-52.0); HEMOGLOBIN 7.6 g/dL (14.0-18.0); MEAN CORPUSCULAR HEMOGLOBIN 25.9 pg (28.0-32.0); MEAN CORPUSCULAR VOLUME 85.1 fL (80.0-94.0); PLATELET 213 x1000/uL (130-400); RED BLOOD CELL COUNT 2.92 mill/uL (4.7-6.1); RED CELL DISTRIBUTION WIDTH 18.4 % (11.6-14.6)
[2018-09-18] MEDS ORDERED: METRONIDAZOLE 500 MG PREMIX 100 ML IV SCH ×3 (18:00→20:00)
[2018-09-18] MEDS: PIPERACILLIN/TAZ 3.375G PREMIX 50 ML IV SCH (18:43)
[2018-09-18] MEDS: PANTOPRAZOLE SODIUM 40 MG/VIAL IV SCH (18:43)
[2018-09-18] MEDS ORDERED: VANCOMYCIN 1250MG in DEXTROSE 5% WATER 250ML IV NR (19:00)
[2018-09-18 19:25] LABS: CHLORIDE 121 mEq/L (98-107)
[2018-09-18] MEDS: METRONIDAZOLE 500 MG PREMIX 100 ML IV SCH (20:34)
[2018-09-18] MEDS ORDERED: POTASSIUM CHLORIDE INJ 40 MEQ in DEXT 5% WATER 500 ML IV NR (21:00)
[2018-09-18] MEDS ORDERED: CEFTAZIDIME PENTAHYDRATE 1 G in DEXTROSE 5% WATER 50 ML IV SCH ×4 (21:00)
[2018-09-18] MEDS: CEFTAZIDIME PENTAHYDRATE 1 G in DEXTROSE 5% WATER 50 ML IV SCH (21:59)
[2018-09-18] MEDS: LORAZEPAM 2MG/ML CPJ IV PRN (22:17)
[2018-09-19] VITALS (64 sets, daily range): BP systolic 80–208; BP diastolic 34–96
[2018-09-19] MEDS: BLOOD SUGAR DIAGNOSTIC STRIP TEST SCH ×24 (00:47→23:45)
[2018-09-19] MEDS: PIPERACILLIN/TAZ 3.375G PREMIX 50 ML IV SCH ×3 (00:57→12:11)
[2018-09-19 01:32] LABS: CHLORIDE 122 mEq/L (98-107)
[2018-09-19] MEDS: SODIUM BICARBONATE 100 MEQ in SODIUM CHLORIDE 0.45% 1,000 ML IV SCH (01:47)
[2018-09-19] MEDS: MORPHINE SULFATE 2 MG/ML CPJ (NOT FOR IM USE) IV PRN (02:41)
[2018-09-19] MEDS ORDERED: POTASSIUM CHLORIDE INJ 40 MEQ in DEXT 5% WATER 500 ML IV NR (04:00)
[2018-09-19] MEDS: LORAZEPAM 2MG/ML CPJ IV PRN (04:36)
[2018-09-19 04:38] LABS: HEMATOCRIT. 23.4 % (42.0-52.0); HEMOGLOBIN. 7.7 g/dL (14.0-18.0); MEAN CORPUSCULAR HEMOGLOBIN 26.6 pg (28.0-32.0); MEAN CORPUSCULAR VOLUME 80.4 fL (80.0-94.0); MEAN PLATELET VOLUME 8.4 fl (7.4-10.4); PLATELET 159 x1000/uL (130-400); RED BLOOD CELL COUNT 2.91 mill/uL (4.7-6.1); RED CELL DISTRIBUTION WIDTH 18.6 % (11.6-14.6)
[2018-09-19 04:51] LABS: CHLORIDE 123 mEq/L (98-107)
[2018-09-19 05:00] LABS: HAPTOGLOBIN <31.0 mg/dL (30-200); LDL CHOLESTEROL 33 mg/dL (5-100)
[2018-09-19 05:01] LABS: HDL CHOLESTEROL 24 mg/dL (40-59); T4 FREE 1.09 ng/dL (0.76-1.46)
[2018-09-19] MEDS: PANTOPRAZOLE SODIUM 40 MG/VIAL IV SCH ×2 (05:09→18:59)
[2018-09-19 05:57] LABS: NUCLEATED RED BLOOD CELLS 1 /100 WBC; PLATELET ESTIMATE NORMAL
[2018-09-19 07:58] LABS: BG BASE EXCESS -3.1 mmol/L (-2.0-2.0); BG CARBOXYHEMOGLOBIN 1.6 % (0.5-1.5); BG DEOXYHEMOGLOBIN 2.3 % (0.0-5.0); BG FRACTION INSPIRED OXYGEN 21; BG HCO3 ACT 20.6 mmol/L (22.0-26.0); BG OXYGEN SATURATION 97.7 % (92.0-98.5); BG OXYHEMOGLOBIN 96.1 % (94.0-97.0); BG PCO2 30.6 mmHg (35.0-45.0); BG PH 7.447 (7.350-7.450); BG PO2 89.9 mmHg (75.0-100.0); BG SAMPLE SITE RIGHT BRACHIAL; BG VENT MODE ROOM AIR
[2018-09-19] MEDS: METRONIDAZOLE 500 MG PREMIX 100 ML IV SCH ×2 (08:40→21:12)
[2018-09-19] MEDS ORDERED: SODIUM CHLORIDE 0.45% 1,000 ML IV SCH (09:00)
[2018-09-19] MEDS ORDERED: POTASSIUM CHLORIDE 20MEQ/PACKET PO NR (09:00)
[2018-09-19] MEDS: CEFTAZIDIME PENTAHYDRATE 1 G in DEXTROSE 5% WATER 50 ML IV SCH ×2 (09:30→21:12)
[2018-09-19 10:25] LABS: CHLORIDE 122 mEq/L (98-107)
[2018-09-19] MEDS: VANCOMYCIN 750 MG PREMIX 150 ML IV SCH ×2 (10:59→18:59)
[2018-09-19] MEDS ORDERED: VANCOMYCIN 1 G PREMIX 200 ML IV SCH (11:00)
[2018-09-19] MEDS ORDERED: POTASSIUM CHLORIDE INJ 40 MEQ in DEXT 5% WATER 250 ML IV NR (11:30)
[2018-09-19 16:22] LABS: CHLORIDE 120 mEq/L (98-107)
[2018-09-19] MEDS ORDERED: POTASSIUM CHLORIDE INJ 30 MEQ in DEXT 5% WATER 250 ML IV SCH (20:00)
[2018-09-19] MEDS: DEXT 5%/0.45% NACL KCL 40MEQ/L 1,000 ML IV SCH (21:10)
[2018-09-20] VITALS (54 sets, daily range): BP systolic 102–134; BP diastolic 51–83
[2018-09-20] MEDS: BLOOD SUGAR DIAGNOSTIC STRIP TEST SCH ×13 (00:45→20:56)
[2018-09-20] MEDS: VANCOMYCIN 750 MG PREMIX 150 ML IV SCH (01:56)
[2018-09-20] MEDS: INSULIN REGULAR (DRIP) 100 UNITS in SODIUM CHLORIDE 0.9% 100 ML IV SCH (04:18)
[2018-09-20 06:33] LABS: BASOPHILS % 0.2 % (0.0-2.0); EOSINOPHILS % 0.2 % (0.0-5.0); HEMATOCRIT. 26.1 % (42.0-52.0); LYMPHOCYTES % 12.2 % (20.0-50.0); MEAN CORPUSCULAR HEMOGLOBIN 28.4 pg (28.0-32.0); MEAN CORPUSCULAR VOLUME 82.6 fL (80.0-94.0); MEAN PLATELET VOLUME 8.5 fl (7.4-10.4); MONOCYTES % 12.5 % (2.0-8.0); NEUTROPHILS % 74.9 % (40.0-76.0); PLATELET 97 x1000/uL (130-400); RED BLOOD CELL COUNT 3.16 mill/uL (4.7-6.1); RED CELL DISTRIBUTION WIDTH 17.2 % (11.6-14.6)
[2018-09-20 07:12] LABS: CHLORIDE 117 mEq/L (98-107)
[2018-09-20 07:29] LABS: PHOSPHORUS 0.9 mg/dL (2.5-4.9)
[2018-09-20] MEDS: PANTOPRAZOLE SODIUM 40 MG/VIAL IV SCH ×2 (07:43→18:17)
[2018-09-20] MEDS: DEXT 5%/0.45% NACL KCL 40MEQ/L 1,000 ML IV SCH ×2 (07:50→16:43)
[2018-09-20] MEDS: METRONIDAZOLE 500 MG PREMIX 100 ML IV SCH ×2 (08:16→20:08)
[2018-09-20] MEDS ORDERED: POTASSIUM PHOS,M-BASIC-D-BASIC 20 MMOL in DEXT 5% WATER 243.3333 ML IV SCH (09:00)
[2018-09-20] MEDS: CEFTAZIDIME PENTAHYDRATE 1 G in DEXTROSE 5% WATER 50 ML IV SCH ×2 (09:22→20:56)
[2018-09-20] MEDS ORDERED: VANCOMYCIN 1250MG in DEXTROSE 5% WATER 250ML IV SCH (10:00)
[2018-09-20] MEDS ORDERED: DEXTROSE 50% WATER 50ML SYRINGE IV PRN (10:30)
[2018-09-20] MEDS: INSULIN GLARGINE UD 100 UNITS/ML SYR SUBCUT SCH (12:35)
[2018-09-20] MEDS: INSULIN LISPRO 100 UNITS/ML SUBCUT SCH ×3 (12:41→20:56)
[2018-09-20] MEDS ORDERED: POTASSIUM CHLORIDE INJ 60 MEQ in DEXT 5% WATER 500 ML IV SCH (14:00)
[2018-09-20 15:16] LABS: HEMATOCRIT 25.8 % (42.0-52.0); HEMOGLOBIN 8.9 g/dL (14.0-18.0); MEAN CORPUSCULAR HEMOGLOBIN 28.6 pg (28.0-32.0); MEAN CORPUSCULAR VOLUME 82.4 fL (80.0-94.0); PLATELET 96 x1000/uL (130-400); RED BLOOD CELL COUNT 3.13 mill/uL (4.7-6.1); RED CELL DISTRIBUTION WIDTH 16.6 % (11.6-14.6)
[2018-09-20 15:19] LABS: CHLORIDE 114 mEq/L (98-107)
[2018-09-20] MEDS: MORPHINE SULFATE 2 MG/ML CPJ (NOT FOR IM USE) IV PRN ×2 (18:31→22:34)
[2018-09-20 19:48] LABS: CHLORIDE 114 mEq/L (98-107)
[2018-09-21] VITALS (23 sets, daily range): BP systolic 97–133; BP diastolic 60–89
[2018-09-21] MEDS: ONDANSETRON HCL 4MG/2ML INJ IV PRN (01:39)
[2018-09-21] MEDS: DEXT 5%/0.45% NACL KCL 40MEQ/L 1,000 ML IV SCH ×3 (02:30→22:54)
[2018-09-21] MEDS: PANTOPRAZOLE SODIUM 40 MG/VIAL IV SCH ×2 (05:32→18:27)
[2018-09-21] MEDS: MORPHINE SULFATE 2 MG/ML CPJ (NOT FOR IM USE) IV PRN ×5 (05:36→20:43)
[2018-09-21 05:41] LABS: BASOPHILS % 0.5 % (0.0-2.0); EOSINOPHILS % 0.9 % (0.0-5.0); HEMATOCRIT. 29.7 % (42.0-52.0); HEMOGLOBIN. 10.1 g/dL (14.0-18.0); LYMPHOCYTES % 17.4 % (20.0-50.0); MEAN CORPUSCULAR HEMOGLOBIN 29.2 pg (28.0-32.0); MEAN CORPUSCULAR VOLUME 85.4 fL (80.0-94.0); MEAN PLATELET VOLUME 8.9 fl (7.4-10.4); MONOCYTES % 9.4 % (2.0-8.0); NEUTROPHILS % 71.8 % (40.0-76.0); PLATELET 95 x1000/uL (130-400); RED BLOOD CELL COUNT 3.47 mill/uL (4.7-6.1); RED CELL DISTRIBUTION WIDTH 17.1 % (11.6-14.6)
[2018-09-21 05:45] LABS: CHLORIDE 110 mEq/L (98-107)
[2018-09-21 05:58] LABS: PHOSPHORUS 1.2 mg/dL (2.5-4.9)
[2018-09-21] MEDS: INSULIN LISPRO 100 UNITS/ML SUBCUT SCH ×4 (08:11→20:42)
[2018-09-21] MEDS: BLOOD SUGAR DIAGNOSTIC STRIP TEST SCH ×4 (08:11→20:44)
[2018-09-21] MEDS: METRONIDAZOLE 500 MG PREMIX 100 ML IV SCH ×2 (10:57→20:02)
[2018-09-21] MEDS: CEFTAZIDIME PENTAHYDRATE 1 G in DEXTROSE 5% WATER 50 ML IV SCH ×2 (10:57→21:15)
[2018-09-21] MEDS: INSULIN GLARGINE UD 100 UNITS/ML SYR SUBCUT SCH (11:00)
[2018-09-21 12:05] LABS: INR 1.2; PARTIAL THROMBOPLASTIN TIME 30.5 sec (23.4-31.0); PROTHROMBIN TIME 12.2 sec (9.6-11.0)
[2018-09-21 12:08] LABS: HEMATOCRIT 32.7 % (42.0-52.0); HEMOGLOBIN 10.9 g/dL (14.0-18.0)
[2018-09-21 12:23] LABS: FOLIC ACID (FOLATE) SERUM 16.7 ng/mL (>5.38)
[2018-09-21] MEDS ORDERED: MAGNESIUM 4 G PREMIX 100 ML IV NR (15:00)
[2018-09-21] MEDS ORDERED: POTASSIUM PHOS,M-BASIC-D-BASIC 20 MMOL in DEXT 5% WATER 243.3333 ML IV NR (15:00)
[2018-09-22] VITALS (29 sets, daily range): BP systolic 107–153; BP diastolic 21–108
[2018-09-22 01:03] LABS: HEMATOCRIT 32.1 % (42.0-52.0); HEMOGLOBIN 10.7 g/dL (14.0-18.0)
[2018-09-22] MEDS: MORPHINE SULFATE 2 MG/ML CPJ (NOT FOR IM USE) IV PRN ×5 (02:12→22:30)
[2018-09-22 05:40] LABS: BASOPHILS % 0.3 % (0.0-2.0); EOSINOPHILS % 1.4 % (0.0-5.0); HEMATOCRIT. 32.6 % (42.0-52.0); HEMOGLOBIN. 10.9 g/dL (14.0-18.0); LYMPHOCYTES % 13.9 % (20.0-50.0); MEAN CORPUSCULAR HEMOGLOBIN 28.2 pg (28.0-32.0); MEAN CORPUSCULAR VOLUME 84.3 fL (80.0-94.0); MEAN PLATELET VOLUME 8.4 fl (7.4-10.4); MONOCYTES % 7.8 % (2.0-8.0); NEUTROPHILS % 76.6 % (40.0-76.0); PLATELET 138 x1000/uL (130-400); RED BLOOD CELL COUNT 3.87 mill/uL (4.7-6.1); RED CELL DISTRIBUTION WIDTH 17.4 % (11.6-14.6)
[2018-09-22 05:54] LABS: CHLORIDE 108 mEq/L (98-107)
[2018-09-22 06:00] LABS: PHOSPHORUS 1.5 mg/dL (2.5-4.9)
[2018-09-22] MEDS: PANTOPRAZOLE SODIUM 40 MG/VIAL IV SCH ×2 (06:02→18:20)
[2018-09-22] MEDS: CEFTAZIDIME PENTAHYDRATE 1 G in DEXTROSE 5% WATER 50 ML IV SCH ×2 (08:23→21:06)
[2018-09-22] MEDS: INSULIN LISPRO 100 UNITS/ML SUBCUT SCH ×4 (08:24→21:00)
[2018-09-22] MEDS: BLOOD SUGAR DIAGNOSTIC STRIP TEST SCH ×4 (08:25→21:03)
[2018-09-22] MEDS: SODIUM CHLORIDE 0.9% 1,000 ML IV SCH ×2 (08:30→17:00)
[2018-09-22] MEDS: METRONIDAZOLE 500 MG PREMIX 100 ML IV SCH ×2 (08:31→21:06)
[2018-09-22] MEDS ORDERED: SODIUM PHOS,M-BASIC-D-BASIC 15 MM in DEXT 5% WATER 245 ML IV SCH (09:00)
[2018-09-22] MEDS ORDERED: MAGNESIUM 2 G PREMIX 50 ML IV SCH (09:00)
[2018-09-22] MEDS: INSULIN GLARGINE UD 100 UNITS/ML SYR SUBCUT SCH (10:20)
[2018-09-22] MEDS ORDERED: BISACODYL 5MG TABLET PO SCH ×3 (13:00→21:00)
[2018-09-22] MEDS ORDERED: METOCLOPRAMIDE HCL 10MG/2ML VIAL IV SCH ×3 (13:00→21:00)
[2018-09-22] MEDS ORDERED: SORBITOL 70% SOLN 30ML PO SCH ×3 (14:00→22:00)
[2018-09-22] MEDS: ONDANSETRON HCL 4MG/2ML INJ IV PRN (20:57)
[2018-09-23] VITALS (48 sets, daily range): BP systolic 105–142; BP diastolic 56–100
[2018-09-23] MEDS: SODIUM CHLORIDE 0.9% 1,000 ML IV SCH (02:54)
[2018-09-23 05:38] LABS: BASOPHILS % 0.5 % (0.0-2.0); EOSINOPHILS % 1.1 % (0.0-5.0); HEMATOCRIT. 31.7 % (42.0-52.0); HEMOGLOBIN. 10.4 g/dL (14.0-18.0); LYMPHOCYTES % 15.8 % (20.0-50.0); MEAN CORPUSCULAR HEMOGLOBIN 27.9 pg (28.0-32.0); MEAN CORPUSCULAR VOLUME 85.1 fL (80.0-94.0); MEAN PLATELET VOLUME 8.2 fl (7.4-10.4); MONOCYTES % 10.4 % (2.0-8.0); NEUTROPHILS % 72.2 % (40.0-76.0); PLATELET 169 x1000/uL (130-400); RED BLOOD CELL COUNT 3.72 mill/uL (4.7-6.1); RED CELL DISTRIBUTION WIDTH 18.2 % (11.6-14.6)
[2018-09-23] MEDS: PANTOPRAZOLE SODIUM 40 MG/VIAL IV SCH ×2 (05:48→18:10)
[2018-09-23 05:50] LABS: CHLORIDE 111 mEq/L (98-107)
[2018-09-23 06:01] LABS: PHOSPHORUS 2.2 mg/dL (2.5-4.9)
[2018-09-23 06:02] LABS: INR 1.2; PARTIAL THROMBOPLASTIN TIME 27.1 sec (23.4-31.0); PROTHROMBIN TIME 12.4 sec (9.6-11.0)
[2018-09-23] MEDS ORDERED: POTASSIUM PHOS,M-BASIC-D-BASIC 15 MMOL in DEXT 5% WATER 245 ML IV ONE (07:30)
[2018-09-23] MEDS: BLOOD SUGAR DIAGNOSTIC STRIP TEST SCH ×4 (08:19→20:52)
[2018-09-23] MEDS: ONDANSETRON HCL 4MG/2ML INJ IV PRN (08:21)
[2018-09-23] MEDS: METRONIDAZOLE 500 MG PREMIX 100 ML IV SCH (08:21)
[2018-09-23] MEDS: CEFTAZIDIME PENTAHYDRATE 1 G in DEXTROSE 5% WATER 50 ML IV SCH (08:21)
[2018-09-23] MEDS: INSULIN LISPRO 100 UNITS/ML SUBCUT SCH ×4 (08:22→21:02)
[2018-09-23] MEDS: SODIUM CHLORIDE 0.45% 1,000 ML IV SCH ×2 (08:27→21:02)
[2018-09-23] MEDS ORDERED: POTASSIUM PHOS,M-BASIC-D-BASIC 15 MMOL in DEXT 5% WATER 245 ML IV SCH (09:00)
[2018-09-23] MEDS: INSULIN GLARGINE UD 100 UNITS/ML SYR SUBCUT SCH (10:25)
[2018-09-23] MEDS: MORPHINE SULFATE 2 MG/ML CPJ (NOT FOR IM USE) IV PRN ×2 (10:42→18:11)
[2018-09-23] MEDS ORDERED: PROPOFOL 200MG/20ML VIAL IV ONE ×2 (11:39→11:48)
[2018-09-23] MEDS ORDERED: MIDAZOLAM HCL 5 MG/5 ML VIAL ONE (11:39)
[2018-09-23] MEDS: SUCRALFATE 1 G/10 ML UDC PO SCH ×3 (13:00→21:01)
[2018-09-23] MEDS ORDERED: METOCLOPRAMIDE HCL 5MG TABLET PO NR (15:30)
[2018-09-23] MEDS ORDERED: BISACODYL 5MG TABLET PO NR ×2 (15:30→20:30)
[2018-09-23] MEDS ORDERED: SORBITOL 70% SOLN 30ML PO NR ×2 (16:00→21:00)
[2018-09-23] MEDS ORDERED: METOCLOPRAMIDE HCL 10MG TABLET PO NR (20:30)
[2018-09-24] VITALS (8 sets, daily range): BP systolic 110–137; BP diastolic 72–89
[2018-09-24] MEDS: MORPHINE SULFATE 2 MG/ML CPJ (NOT FOR IM USE) IV PRN ×5 (00:03→21:59)
[2018-09-24] MEDS: ONDANSETRON HCL 4MG/2ML INJ IV PRN (01:22)
[2018-09-24] MEDS ORDERED: METOCLOPRAMIDE HCL 10MG TABLET PO NR (04:30)
[2018-09-24] MEDS ORDERED: BISACODYL 5MG TABLET PO NR ×2 (04:30→10:00)
[2018-09-24] MEDS: PANTOPRAZOLE SODIUM 40 MG/VIAL IV SCH ×2 (04:57→18:06)
[2018-09-24] MEDS ORDERED: SORBITOL 70% SOLN 30ML PO NR ×2 (05:00→10:30)
[2018-09-24 07:27] LABS: BASOPHILS % 0.3 % (0.0-2.0); EOSINOPHILS % 2.7 % (0.0-5.0); HEMATOCRIT. 28.2 % (42.0-52.0); HEMOGLOBIN. 9.4 g/dL (14.0-18.0); LYMPHOCYTES % 13.5 % (20.0-50.0); MEAN CORPUSCULAR HEMOGLOBIN 28.6 pg (28.0-32.0); MEAN CORPUSCULAR VOLUME 85.5 fL (80.0-94.0); MEAN PLATELET VOLUME 8.4 fl (7.4-10.4); MONOCYTES % 9.7 % (2.0-8.0); NEUTROPHILS % 73.8 % (40.0-76.0); PLATELET 224 x1000/uL (130-400); RED CELL DISTRIBUTION WIDTH 18.8 % (11.6-14.6)
[2018-09-24] MEDS: BLOOD SUGAR DIAGNOSTIC STRIP TEST SCH ×4 (07:40→21:59)
[2018-09-24] MEDS: SUCRALFATE 1 G/10 ML UDC PO SCH ×4 (07:40→20:53)
[2018-09-24] MEDS: INSULIN LISPRO 100 UNITS/ML SUBCUT SCH ×4 (08:10→21:00)
[2018-09-24] MEDS: INSULIN GLARGINE UD 100 UNITS/ML SYR SUBCUT SCH (08:49)
[2018-09-24] MEDS: SODIUM CHLORIDE 0.45% 1,000 ML IV SCH (08:49)
[2018-09-24 09:33] LABS: CHLORIDE 110 mEq/L (98-107)
[2018-09-24 09:38] LABS: PHOSPHORUS 2.5 mg/dL (2.5-4.9)
[2018-09-24] MEDS ORDERED: METOCLOPRAMIDE HCL 5MG TABLET PO NR (10:00)
[2018-09-24] MEDS ORDERED: METOCLOPRAMIDE HCL 10MG/2ML VIAL IV NR (11:30)
[2018-09-24] MEDS ORDERED: KCL 20MEQ/100ML PREMIX 100 ML IV NR (12:00)
[2018-09-24] MEDS ORDERED: PROPOFOL 200MG/20ML VIAL IV ONE ×2 (14:45→15:08)
[2018-09-24] MEDS ORDERED: HYDROMORPHONE HCL/PF 2MG/ML CPJ IV PRN (15:00)
[2018-09-24] MEDS ORDERED: LABETALOL 5MG/ML SYR 20 MG/4 ML SYRINGE IV PRN (15:00)
[2018-09-24] MEDS ORDERED: ONDANSETRON HCL 4MG/2ML INJ IV PRN (15:00)
[2018-09-24] MEDS ORDERED: MEPERIDINE HCL/PF 25MG/ML CPJ IV PRN (15:00)
[2018-09-25] MEDS: ONDANSETRON HCL 4MG/2ML INJ IV PRN ×2 (00:38→15:37)
[2018-09-25 04:00] VITALS: BP 123/80
[2018-09-25] MEDS: PANTOPRAZOLE SODIUM 40 MG/VIAL IV SCH ×2 (05:50→18:01)
[2018-09-25] MEDS: MORPHINE SULFATE 2 MG/ML CPJ (NOT FOR IM USE) IV PRN ×4 (05:51→20:59)
[2018-09-25 05:59] LABS: CHLORIDE 110 mEq/L (98-107)
[2018-09-25] MEDS: SODIUM CHLORIDE 0.45% 1,000 ML IV SCH ×2 (05:59→20:13)
[2018-09-25 06:05] LABS: HEMATOCRIT. 26.3 % (42.0-52.0); HEMOGLOBIN. 8.5 g/dL (14.0-18.0); MEAN CORPUSCULAR HEMOGLOBIN 28.2 pg (28.0-32.0); MEAN PLATELET VOLUME 8.4 fl (7.4-10.4); PLATELET 195 x1000/uL (130-400); RED BLOOD CELL COUNT 3.02 mill/uL (4.7-6.1); RED CELL DISTRIBUTION WIDTH 19.2 % (11.6-14.6)
[2018-09-25] MEDS: BLOOD SUGAR DIAGNOSTIC STRIP TEST SCH ×4 (07:35→20:58)
[2018-09-25] MEDS: SUCRALFATE 1 G/10 ML UDC PO SCH ×4 (08:20→20:13)
[2018-09-25 08:21] VITALS: BP 125/71
[2018-09-25] MEDS: INSULIN LISPRO 100 UNITS/ML SUBCUT SCH ×4 (08:22→20:59)
[2018-09-25] MEDS ORDERED: POTASSIUM CHLORIDE 20MEQ TABLET SR PO NR (08:45)
[2018-09-25 09:24] LABS: PLATELET ESTIMATE NORMAL
[2018-09-25] MEDS: INSULIN GLARGINE UD 100 UNITS/ML SYR SUBCUT SCH (09:48)
[2018-09-25 12:45] VITALS: BP 129/78
[2018-09-25 15:57] VITALS: BP 123/81
[2018-09-25 20:00] VITALS: BP 123/73
[2018-09-25] MEDS: PANTOPRAZOLE 40MG DR TABLET PO SCH (20:13)
[2018-09-26] VITALS: BP 118/77
[2018-09-26] MEDS: MORPHINE SULFATE 2 MG/ML CPJ (NOT FOR IM USE) IV PRN ×3 (01:07→09:05)
[2018-09-26 04:00] VITALS: BP_SYST 104; BP_SYST 113; BP_DIAS 57; BP_DIAS 74
[2018-09-26] MEDS: BLOOD SUGAR DIAGNOSTIC STRIP TEST SCH ×2 (06:48→13:04)
[2018-09-26 06:59] LABS: HEMATOCRIT. 24.8 % (42.0-52.0); HEMOGLOBIN. 8.2 g/dL (14.0-18.0); MEAN CORPUSCULAR HEMOGLOBIN 28.1 pg (28.0-32.0); MEAN CORPUSCULAR VOLUME 85.1 fL (80.0-94.0); MEAN PLATELET VOLUME 8.1 fl (7.4-10.4); PLATELET 190 x1000/uL (130-400); RED BLOOD CELL COUNT 2.91 mill/uL (4.7-6.1); RED CELL DISTRIBUTION WIDTH 19.3 % (11.6-14.6)
[2018-09-26 07:16] LABS: CHLORIDE 107 mEq/L (98-107)
[2018-09-26 07:26] LABS: PHOSPHORUS 2.7 mg/dL (2.5-4.9)
[2018-09-26 08:00] VITALS: BP 103/43
[2018-09-26] MEDS ORDERED: POTASSIUM CHLORIDE 20MEQ TABLET SR PO NR (08:00)
[2018-09-26] MEDS: INSULIN LISPRO 100 UNITS/ML SUBCUT SCH ×2 (08:09→13:04)
[2018-09-26] MEDS: PANTOPRAZOLE 40MG DR TABLET PO SCH (08:26)
[2018-09-26] MEDS: SUCRALFATE 1 G/10 ML UDC PO SCH (08:26)
[2018-09-26] MEDS ORDERED: MAGNESIUM 2 G PREMIX 50 ML IV NR (09:00)
[2018-09-26] MEDS: INSULIN GLARGINE UD 100 UNITS/ML SYR SUBCUT SCH (10:17)
[2018-09-26 12:00] VITALS: BP 99/40
[2018-09-26 12:10] LABS: PLATELET ESTIMATE NORMAL
[2018-09-26 13:13] VITALS: BP 133/79
[2018-09-26 16:00] VITALS: BP 108/56
== END 2018-09-26 15:38 | disposition home or self-care (01) | DRG 720 ==
LOC: ER 10:07 → CVICU 11:25 → EDBEDREQ 11:28 → EDBEDREQTM 11:28 → EDBEDREQSVC 11:28 → ENRESERV 13:09 → 7WST 09-23 23:24
PROVIDERS: ADMIT Internal Medicine; ATTEND Internal Medicine
PROC: 30233N1 Transfusion of Nonautologous Red Blood Cells into Peripheral Vein, Percutaneous Approach (ICD-10-PCS; 2018-09-18)
PROC: B5181ZA Fluoroscopy of Superior Vena Cava using Low Osmolar Contrast, Guidance (ICD-10-PCS; 2018-09-18)
PROC: 02HV33Z Insertion of Infusion Device into Superior Vena Cava, Percutaneous Approach (ICD-10-PCS; 2018-09-18)
PROC: B548ZZA Ultrasonography of Superior Vena Cava, Guidance (ICD-10-PCS; 2018-09-18)
PROC: 0DB68ZX Excision of Stomach, Via Natural or Artificial Opening Endoscopic, Diagnostic (ICD-10-PCS; 2018-09-23)
PROC: 0DBN8ZX Excision of Sigmoid Colon, Via Natural or Artificial Opening Endoscopic, Diagnostic (ICD-10-PCS; principal; 2018-09-24)
DX: A41.9 Sepsis, unspecified organism (principal); N17.0 Acute kidney failure with tubular necrosis; G92 Toxic encephalopathy; E11.10 Type 2 diabetes mellitus with ketoacidosis without coma; K22.11 Ulcer of esophagus with bleeding; K29.71 Gastritis, unspecified, with bleeding; D68.9 Coagulation defect, unspecified; E83.39 Other disorders of phosphorus metabolism; K63.3 Ulcer of intestine; E88.09 Other disorders of plasma-protein metabolism, not elsewhere classified; K86.0 Alcohol-induced chronic pancreatitis; E86.0 Dehydration; E87.0 Hyperosmolality and hypernatremia; I10 Essential (primary) hypertension; K86.1 Other chronic pancreatitis; D72.828 Other elevated white blood cell count; D50.0 Iron deficiency anemia secondary to blood loss (chronic); D57.1 Sickle-cell disease without crisis; E87.6 Hypokalemia; F17.200 Nicotine dependence, unspecified, uncomplicated; K70.9 Alcoholic liver disease, unspecified; D69.6 Thrombocytopenia, unspecified; F10.20 Alcohol dependence, uncomplicated; K21.9 Gastro-esophageal reflux disease without esophagitis; K44.9 Diaphragmatic hernia without obstruction or gangrene; F17.210 Nicotine dependence, cigarettes, uncomplicated; F19.10 Other psychoactive substance abuse, uncomplicated; E86.9 Volume depletion, unspecified; Z91.19 Patient's noncompliance with other medical treatment and regimen; Z76.5 Malingerer [conscious simulation]; Z87.19 Personal history of other diseases of the digestive system; Z88.8 Allergy status to other drugs, medicaments and biological substances
CPT/HCPCS: 36415; 36600; 71045; 76700; 76770; 76937; 80048; 80061; 80076; 80202; 80305; 80320; 82140; 82270; 82375; 82607; 82728; 82746; 82805; 82962; 83010; 83540; 83550; 83605; 83615; 83735; 83930; 83935; 84100; 84132; 84133; 84145; 84439; 84443; 84484; 85014; 85018; 85027; 85044; 85049; 86850; 86880; 86900; 86920; 88305; 88312; 88313; 93005; 93306; 96361; 96365; 96375; 99291; C1725; C9113; J0713; J1200; J1815; J2060; J2250; J2270; J2405; J2543; J2704; J2765; J3370; J3475; J3480; J3490; J7030; J7040; J7050; J7060; J8597; P9016; P9021; A4315; G0480

== ENCOUNTER 2018-11-30 15:06 | Emergency (ER) | payer OTHER ==
[~2018-11-30] VITALS: Ht 175.3 cm; Wt 90.0 kg
[~2018-11-30 15:06] MED LIST changes: -ASPI-1158 PO; -GLIP5TAB12 PO
[2018-11-30] MEDS ORDERED: SODIUM CHLORIDE 0.9% 1,000 ML IV ONE (15:26)
[2018-11-30] MEDS ORDERED: LEVETIRACETAM 1000MG/100ML 100 ML IV ONE (15:30)
[2018-11-30 15:54] LABS: BASOPHILS % 0.9 % (0.0-2.0); HEMATOCRIT. 28.8 % (42.0-52.0); HEMOGLOBIN. 9.1 g/dL (14.0-18.0); LYMPHOCYTES % 20.1 % (20.0-50.0); MEAN CORPUSCULAR HEMOGLOBIN 24.4 pg (28.0-32.0); MEAN CORPUSCULAR VOLUME 77.1 fL (80.0-94.0); MEAN PLATELET VOLUME 7.6 fl (7.4-10.4); MONOCYTES % 6.3 % (2.0-8.0); NEUTROPHILS % 71.7 % (40.0-76.0); PLATELET 413 x1000/uL (130-400); RED BLOOD CELL COUNT 3.73 mill/uL (4.7-6.1); RED CELL DISTRIBUTION WIDTH 18.1 % (11.6-14.6)
[2018-11-30 15:57] LABS: CHLORIDE 108 mEq/L (98-107)
[2018-11-30 16:01] LABS: ETHANOL BLOOD < 10 mg/dL
[2018-11-30 18:04] LABS: CLARITY URINE CLOUDY (CLEAR); COLOR URINE DARK YELLOW (YELLOW); KETONES URINE TRACE (NEGATIVE); LEUKOCYTE ESTERASE URINE NEGATIVE (NEGATIVE); NITRITE URINE NEGATIVE (NEGATIVE); OCCULT BLOOD URINE NEGATIVE (NEGATIVE); PH URINE 5.5 (4.5-8.0); PROTEIN URINE TRACE (NEGATIVE); SPECIFIC GRAVITY URINE 1.022 (1.005-1.030)
[2018-11-30 18:17] LABS: *AMPHETAMINES SCREEN URINE NEGATIVE (NEGATIVE); *BARBITURATES SCREEN URINE NEGATIVE (NEGATIVE); *BENZODIAZEPINES SCREEN URINE PRESUMTIVE POSITIVE (NEGATIVE); *COCAINE SCREEN URINE NEGATIVE (NEGATIVE); CANNABINOID URINE SCREEN PRESUMTIVE POSITIVE (NEGATIVE); METHADONE URINE SCREEN NEGATIVE (NEGATIVE); OPIATES URINE SCREEN PRESUMTIVE POSITIVE (NEGATIVE); PHENCYCLIDINE URINE SCREEN PRESUMTIVE POSITIVE (NEGATIVE)
[2018-11-30 21:05] VITALS: BP 102/72
== END 2018-11-30 21:21 | disposition short-term general hospital (02) ==
LOC: ER 15:06
DX: G93.49 Other encephalopathy (principal); D72.829 Elevated white blood cell count, unspecified; I10 Essential (primary) hypertension; R00.0 Tachycardia, unspecified; D64.9 Anemia, unspecified; F10.20 Alcohol dependence, uncomplicated; F15.10 Other stimulant abuse, uncomplicated; Y90.0 Blood alcohol level of less than 20 mg/100 ml; F16.10 Hallucinogen abuse, uncomplicated; F12.90 Cannabis use, unspecified, uncomplicated; E11.9 Type 2 diabetes mellitus without complications; Z86.73 Personal history of transient ischemic attack (TIA), and cerebral infarction without residual deficits
CPT/HCPCS: 36415; 70450; 80053; 80305; 80320; 81003; 82962; 85025; 96365; 99285; J1953; J7030; 93005; G0480

== ENCOUNTER 2021-08-29 21:43 | Inpatient (IN) | payer SELFPAY ==
[~2021-08-29] VITALS: Ht 175.3 cm; Wt 40.8 kg
[~2021-08-29 21:43] MED LIST changes: +PANT20TA17 PO; -PANT20TA3 PO
[2021-08-29 22:43] LABS: CHLORIDE 94 mEq/L (98-107)
[2021-08-29 22:48] LABS: BASOPHILS % 0.2 % (0.0-2.0); EOSINOPHILS % 0.1 % (0.0-5.0); HEMATOCRIT. 38.9 % (42.0-52.0); HEMOGLOBIN. 13.1 g/dL (14.0-18.0); LYMPHOCYTES % 12.8 % (20.0-50.0); MEAN CORPUSCULAR VOLUME 89.2 fL (80.0-94.0); MONOCYTES % 5.2 % (2.0-8.0); NEUTROPHILS % 81.7 % (40.0-76.0); PLATELET 222 x1000/uL (130-400); RED BLOOD CELL COUNT 4.36 mill/uL (4.7-6.1); RED CELL DISTRIBUTION WIDTH 13.7 % (11.6-14.6)
[2021-08-29 22:55] LABS: ETHANOL BLOOD < 10 mg/dL
[2021-08-29] MEDS ORDERED: POTASSIUM CHLORIDE 20MEQ TABLET SR PO ONE (23:30)
[2021-08-29] MEDS ORDERED: POTASSIUM CHLORIDE INJ 40 MEQ in DEXT 5% WATER 250 ML IV ONE (23:30)
[2021-08-30] MEDS ORDERED: PIPERACILLIN/TAZOBACTAM 3.375GM/50ML PREMIX IV SCH
[2021-08-30] MEDS ORDERED: VANCOMYCIN 1G PREMIX 200 ML IV SCH
[2021-08-30 00:07] LABS: CLARITY URINE CLEAR (CLEAR); COLOR URINE YELLOW (YELLOW); KETONES URINE NEGATIVE (NEGATIVE); LEUKOCYTE ESTERASE URINE NEGATIVE (NEGATIVE); NITRITE URINE NEGATIVE (NEGATIVE); OCCULT BLOOD URINE NEGATIVE (NEGATIVE); PH URINE 6.5 (4.5-8.0); PROTEIN URINE NEGATIVE (NEGATIVE); SPECIFIC GRAVITY URINE 1.013 (1.005-1.030); UROBILINOGEN URINE 0.2 E.U./dL (0.2-1.0)
[2021-08-30 00:13] LABS: *AMPHETAMINES SCREEN URINE NEGATIVE (NEGATIVE); *BARBITURATES SCREEN URINE NEGATIVE (NEGATIVE); *BENZODIAZEPINES SCREEN URINE NEGATIVE (NEGATIVE); *COCAINE SCREEN URINE NEGATIVE (NEGATIVE); CANNABINOID URINE SCREEN PRESUMTIVE POSITIVE (NEGATIVE); METHADONE URINE SCREEN NEGATIVE (NEGATIVE); OPIATES URINE SCREEN NEGATIVE (NEGATIVE); PHENCYCLIDINE URINE SCREEN NEGATIVE (NEGATIVE)
[2021-08-30] MEDS ORDERED: POTASSIUM CHLORIDE 20MEQ TABLET SR PO SCH ×2 (01:30→06:45)
[2021-08-30] MEDS: KCL 20MEQ/100ML PREMIX 100 ML IV SCH ×2 (01:56→03:49)
[2021-08-30 05:30] VITALS: BP 106/78
[2021-08-30] MEDS ORDERED: IPRATROPIUM/ALBUTEROL 0.5-3(2.5)MG/3ML NEB HHN PRN (06:30)
[2021-08-30] MEDS ORDERED: DOCUSATE SODIUM 100MG CAPSULE PO PRN (06:30)
[2021-08-30] MEDS ORDERED: LORAZEPAM 0.5MG TABLET PO PRN (06:30)
[2021-08-30] MEDS ORDERED: GUAIFENESIN 200MG/10ML SUGAR FREE UDC PO PRN (06:30)
[2021-08-30] MEDS ORDERED: CLONIDINE 0.1MG TABLET PO PRN (06:30)
[2021-08-30] MEDS ORDERED: ACETAMINOPHEN 325MG TABLET PO PRN (06:30)
[2021-08-30] MEDS ORDERED: DEXTROSE 50% WATER 50ML SYRINGE IV ONE (07:19)
[2021-08-30] MEDS: BLOOD SUGAR DIAGNOSTIC STRIP TEST SCH ×4 (07:59→21:24)
[2021-08-30 08:00] VITALS: BP 118/76
[2021-08-30] MEDS: THIAMINE HCL 100MG TABLET PO SCH (08:45)
[2021-08-30 09:34] LABS: BASOPHILS % 0.2 % (0.0-2.0); HEMATOCRIT. 38.2 % (42.0-52.0); HEMOGLOBIN. 12.9 g/dL (14.0-18.0); LYMPHOCYTES % 9.9 % (20.0-50.0); MEAN CORPUSCULAR HEMOGLOBIN 29.5 pg (28.0-32.0); MEAN CORPUSCULAR VOLUME 87.3 fL (80.0-94.0); MEAN PLATELET VOLUME 7.9 fl (7.4-10.4); MONOCYTES % 3.6 % (2.0-8.0); NEUTROPHILS % 86.3 % (40.0-76.0); PLATELET 234 x1000/uL (130-400); RED BLOOD CELL COUNT 4.38 mill/uL (4.7-6.1); RED CELL DISTRIBUTION WIDTH 13.5 % (11.6-14.6)
[2021-08-30 09:48] LABS: CHLORIDE 95 mEq/L (98-107)
[2021-08-30 10:06] LABS: BETA HYDROXYBUTYRATE 0.1 mMol/L (0.0-0.3); CREATINE KINASE 693 IU/L (39-308); HDL CHOLESTEROL 64 mg/dL (40-59); LDL CHOLESTEROL 18 mg/dL (5-100)
[2021-08-30] MEDS: ACETAMINOPHEN 325MG TABLET PO PRN (10:15)
[2021-08-30] MEDS ORDERED: NALOXONE HCL 0.4MG/ML VIAL IV PRN (11:45)
[2021-08-30] MEDS: MORPHINE SULFATE 2 MG/ML CPJ (NOT FOR IM USE) IV PRN ×3 (11:55→21:24)
[2021-08-30 12:00] VITALS: BP 115/76
[2021-08-30] MEDS: TAMSULOSIN HCL 0.4MG SR CAPSULE PO SCH (14:24)
[2021-08-30] MEDS: FINASTERIDE 5MG TABLET PO SCH (14:25)
[2021-08-30] MEDS: SILDENAFIL CITRATE 20MG TABLET PO SCH ×2 (14:25→21:20)
[2021-08-30 16:00] VITALS: BP 116/85
[2021-08-30] MEDS ORDERED: CEFTRIAXONE 1 G PREMIX 50 ML IV SCH (18:00)
[2021-08-30] MEDS ORDERED: AZITHROMYCIN 500 MG TABLET PO NR (18:00)
[2021-08-30 20:00] VITALS: BP 108/79
[2021-08-30] MEDS: ACETYLCYSTEINE 100MG/ML 10% VIAL 4ML INH SCH (21:00)
[2021-08-30] MEDS: IPRATROPIUM/ALBUTEROL 0.5-3(2.5)MG/3ML NEB HHN SCH (21:05)
[2021-08-30] MEDS: CEFTRIAXONE 1,000 MG in DEXTROSE 5% WATER 50 ML IV SCH (21:20)
[2021-08-30] MEDS: INSULIN LISPRO 100 UNITS/ML SUBCUT SCH (21:24)
[2021-08-30] MEDS: ONDANSETRON HCL 4MG/2ML INJ IV PRN (22:09)
[2021-08-30] MEDS: DIPHENHYDRAMINE 50MG/ML VIAL IV PRN (22:09)
[2021-08-31 00:02] VITALS: BP 107/74
[2021-08-31] MEDS: MORPHINE SULFATE 2 MG/ML CPJ (NOT FOR IM USE) IV PRN ×6 (01:36→23:46)
[2021-08-31 04:00] VITALS: BP 127/85
[2021-08-31] MEDS: SILDENAFIL CITRATE 20MG TABLET PO SCH ×3 (05:36→21:45)
[2021-08-31] MEDS: BLOOD SUGAR DIAGNOSTIC STRIP TEST SCH ×4 (06:51→21:45)
[2021-08-31] MEDS: DEXTROSE 50% WATER 50ML SYRINGE IV PRN (07:12)
[2021-08-31 07:33] LABS: BASOPHILS % 0.1 % (0.0-2.0); HEMATOCRIT. 34.1 % (42.0-52.0); HEMOGLOBIN. 11.7 g/dL (14.0-18.0); MEAN CORPUSCULAR HEMOGLOBIN 30.2 pg (28.0-32.0); MONOCYTES % 4.9 % (2.0-8.0); PLATELET 172 x1000/uL (130-400); RED BLOOD CELL COUNT 3.87 mill/uL (4.7-6.1); RED CELL DISTRIBUTION WIDTH 13.8 % (11.6-14.6)
[2021-08-31 07:41] LABS: CHLORIDE 97 mEq/L (98-107)
[2021-08-31 08:00] VITALS: BP 117/82
[2021-08-31] MEDS: INSULIN LISPRO 100 UNITS/ML SUBCUT SCH ×4 (08:10→21:00)
[2021-08-31] MEDS: IPRATROPIUM/ALBUTEROL 0.5-3(2.5)MG/3ML NEB HHN SCH ×4 (08:16→21:15)
[2021-08-31] MEDS: ACETYLCYSTEINE 100MG/ML 10% VIAL 4ML INH SCH ×2 (08:17→21:15)
[2021-08-31 08:48] LABS: HIV SCREEN 4G Non Reactive (Non Reactive)
[2021-08-31] MEDS ORDERED: POTASSIUM CHLORIDE INJ 40 MEQ in DEXT 5% WATER 250 ML IV ONE (09:00)
[2021-08-31] MEDS: AZITHROMYCIN 250 MG TABLET PO SCH (09:40)
[2021-08-31] MEDS: THIAMINE HCL 100MG TABLET PO SCH (09:40)
[2021-08-31] MEDS: FINASTERIDE 5MG TABLET PO SCH (09:40)
[2021-08-31] MEDS: TAMSULOSIN HCL 0.4MG SR CAPSULE PO SCH (09:40)
[2021-08-31 12:00] VITALS: BP 115/79
[2021-08-31] MEDS: KCL 20MEQ/100ML X 2 FOR TOTAL KCL 40MEQ/200ML IV SCH ×2 (12:10→13:54)
[2021-08-31] MEDS: DEXT 5%/0.45% NACL KCL 20MEQ/L 1,000 ML IV SCH (12:11)
[2021-08-31 16:00] VITALS: BP 128/93
[2021-08-31 20:00] VITALS: BP 103/79
[2021-08-31] MEDS: CEFTRIAXONE 1,000 MG in DEXTROSE 5% WATER 50 ML IV SCH (20:57)
[2021-09-01] VITALS: BP 121/85
[2021-09-01] MEDS: DEXT 5%/0.45% NACL KCL 20MEQ/L 1,000 ML IV SCH ×2 (02:45→20:34)
[2021-09-01] MEDS: DIPHENHYDRAMINE 50MG/ML VIAL IV PRN (02:46)
[2021-09-01] MEDS: IPRATROPIUM/ALBUTEROL 0.5-3(2.5)MG/3ML NEB HHN SCH ×4 (03:19→21:28)
[2021-09-01 04:00] VITALS: BP 130/93
[2021-09-01] MEDS: MORPHINE SULFATE 2 MG/ML CPJ (NOT FOR IM USE) IV PRN ×4 (04:22→20:34)
[2021-09-01] MEDS: ONDANSETRON HCL 4MG/2ML INJ IV PRN (05:28)
[2021-09-01] MEDS: SILDENAFIL CITRATE 20MG TABLET PO SCH ×3 (05:28→20:55)
[2021-09-01] MEDS: BLOOD SUGAR DIAGNOSTIC STRIP TEST SCH ×4 (06:28→20:48)
[2021-09-01 06:56] LABS: BASOPHILS % 0.1 % (0.0-2.0); EOSINOPHILS % 0.1 % (0.0-5.0); HEMATOCRIT. 34.7 % (42.0-52.0); HEMOGLOBIN. 11.7 g/dL (14.0-18.0); MEAN CORPUSCULAR HEMOGLOBIN 29.8 pg (28.0-32.0); MEAN CORPUSCULAR VOLUME 88.6 fL (80.0-94.0); MEAN PLATELET VOLUME 7.6 fl (7.4-10.4); NEUTROPHILS % 81.8 % (40.0-76.0); PLATELET 146 x1000/uL (130-400); RED BLOOD CELL COUNT 3.92 mill/uL (4.7-6.1)
[2021-09-01 07:30] LABS: CHLORIDE 99 mEq/L (98-107)
[2021-09-01 07:34] LABS: HEPATITIS B SURFACE ANTIGEN NEGATIVE
[2021-09-01] MEDS: INSULIN LISPRO 100 UNITS/ML SUBCUT SCH ×4 (07:56→20:58)
[2021-09-01 08:00] VITALS: BP 124/85
[2021-09-01 09:10] LABS: ABSOLUTE LYMPHOCYTES 1.6 x10E3/uL (0.7-3.1); ABSOLUTE MONOCYTES 0.8 x10E3/uL (0.1-0.9); ABSOLUTE NEUTROPHILS 14.9 x10E3/uL (1.4-7.0); BASOPHILS 0 % (Not Estab.); HEMOGLOBIN 11.8 g/dL (13.0-17.7); IMMATURE GRANULOCYTES 0 % (Not Estab.); LYMPHOCYTES 9 % (Not Estab.); MEAN CORPUSCULAR HEMOGLOBIN 30.1 pg (26.6-33.0); MEAN CORPUSCULAR HGB CONC. 34.7 g/dL (31.5-35.7); MEAN CORPUSCULAR VOLUME 87 fL (79-97); MONOCYTES 5 % (Not Estab.); NEUTROPHILS 86 % (Not Estab.); PLATELETS 185 x10E3/uL (150-450); RBC 3.92 x10E6/uL (4.14-5.80); RED CELL DISTRIBUTION WIDTH 12.9 % (11.6-15.4); WBC 17.4 x10E3/uL (3.4-10.8)
[2021-09-01] MEDS: ACETYLCYSTEINE 100MG/ML 10% VIAL 4ML INH SCH ×2 (09:32→21:28)
[2021-09-01] MEDS: THIAMINE HCL 100MG TABLET PO SCH (09:37)
[2021-09-01] MEDS: TAMSULOSIN HCL 0.4MG SR CAPSULE PO SCH (09:38)
[2021-09-01] MEDS: FINASTERIDE 5MG TABLET PO SCH (09:38)
[2021-09-01] MEDS: AZITHROMYCIN 250 MG TABLET PO SCH (09:38)
[2021-09-01 12:00] VITALS: BP 127/64
[2021-09-01 13:07] LABS: % CD 3 POS. LYMPHOCYTES 69.3 % (57.5-86.2); % CD 4 POS. LYMPHOCYTES 52.8 % (30.8-58.5); % CD 8 POS. LYMPH 16.3 % (12.0-35.5); ABSOLUTE CD 3 1109 /uL (622-2402); ABSOLUTE CD 4 HELPER 845 /uL (359-1519); ABSOLUTE CD 8 SUPPRESSOR 261 /uL (109-897); CD4/CD8 RATIO 3.24 (0.92-3.72)
[2021-09-01 16:00] VITALS: BP 128/80
[2021-09-01 20:00] VITALS: BP 109/84
[2021-09-01] MEDS: CEFTRIAXONE 1,000 MG in DEXTROSE 5% WATER 50 ML IV SCH (20:41)
[2021-09-02] VITALS: BP 117/83
[2021-09-02] MEDS: MORPHINE SULFATE 2 MG/ML CPJ (NOT FOR IM USE) IV PRN ×6 (00:42→21:46)
[2021-09-02] MEDS: IPRATROPIUM/ALBUTEROL 0.5-3(2.5)MG/3ML NEB HHN SCH ×3 (01:57→21:23)
[2021-09-02] MEDS: BLOOD SUGAR DIAGNOSTIC STRIP TEST SCH ×5 (03:16→20:29)
[2021-09-02 04:37] VITALS: BP 117/86
[2021-09-02] MEDS: SILDENAFIL CITRATE 20MG TABLET PO SCH ×2 (05:44→13:45)
[2021-09-02] MEDS: INSULIN LISPRO 100 UNITS/ML SUBCUT SCH ×6 (07:40→17:40)
[2021-09-02 08:00] VITALS: BP 126/75
[2021-09-02 08:10] LABS: CHLORIDE 102 mEq/L (98-107)
[2021-09-02] MEDS: ACETYLCYSTEINE 100MG/ML 10% VIAL 4ML INH SCH ×2 (08:47→21:29)
[2021-09-02] MEDS: FINASTERIDE 5MG TABLET PO SCH (08:48)
[2021-09-02] MEDS: AZITHROMYCIN 250 MG TABLET PO SCH (08:48)
[2021-09-02] MEDS: TAMSULOSIN HCL 0.4MG SR CAPSULE PO SCH (08:48)
[2021-09-02] MEDS: THIAMINE HCL 100MG TABLET PO SCH (08:48)
[2021-09-02] MEDS: ONDANSETRON HCL 4MG/2ML INJ IV PRN (09:37)
[2021-09-02 10:00] LABS: BASOPHILS % 0.7 % (0.0-2.0); EOSINOPHILS % 0.1 % (0.0-5.0); HEMATOCRIT. 33.7 % (42.0-52.0); HEMOGLOBIN. 11.4 g/dL (14.0-18.0); LYMPHOCYTES % 12.8 % (20.0-50.0); MEAN CORPUSCULAR HEMOGLOBIN 30.2 pg (28.0-32.0); MEAN CORPUSCULAR VOLUME 89.4 fL (80.0-94.0); MEAN PLATELET VOLUME 8.3 fl (7.4-10.4); MONOCYTES % 3.8 % (2.0-8.0); NEUTROPHILS % 82.6 % (40.0-76.0); PLATELET 191 x1000/uL (130-400); RED BLOOD CELL COUNT 3.77 mill/uL (4.7-6.1); RED CELL DISTRIBUTION WIDTH 13.7 % (11.6-14.6)
[2021-09-02 12:00] VITALS: BP 118/90
[2021-09-02 16:00] VITALS: BP 134/87
[2021-09-02] MEDS: DEXTROSE 50% WATER 50ML SYRINGE IV PRN (17:33)
[2021-09-02 20:00] VITALS: BP 130/94
[2021-09-02] MEDS: MAGNESIUM/ALUMINUM HYDROXIDE/SIMETHICONE 30ML UDC PO PRN (20:12)
[2021-09-02] MEDS: CEFTRIAXONE 1,000 MG in DEXTROSE 5% WATER 50 ML IV SCH (20:12)
[2021-09-03] VITALS: BP 114/79
[2021-09-03] MEDS: MORPHINE SULFATE 2 MG/ML CPJ (NOT FOR IM USE) IV PRN ×6 (02:08→23:03)
[2021-09-03] MEDS: IPRATROPIUM/ALBUTEROL 0.5-3(2.5)MG/3ML NEB HHN SCH ×4 (02:10→20:20)
[2021-09-03] MEDS: BLOOD SUGAR DIAGNOSTIC STRIP TEST SCH ×5 (02:20→21:07)
[2021-09-03] MEDS: DIPHENHYDRAMINE 50MG/ML VIAL IV PRN ×2 (03:42→14:07)
[2021-09-03 04:00] VITALS: BP 127/92
[2021-09-03] MEDS: INSULIN LISPRO 100 UNITS/ML SUBCUT SCH ×6 (07:25→17:40)
[2021-09-03 07:57] LABS: BASOPHILS % 0.7 % (0.0-2.0); EOSINOPHILS % 0.2 % (0.0-5.0); HEMATOCRIT. 31.2 % (42.0-52.0); HEMOGLOBIN. 10.4 g/dL (14.0-18.0); LYMPHOCYTES % 14.6 % (20.0-50.0); MEAN CORPUSCULAR HEMOGLOBIN 29.8 pg (28.0-32.0); MEAN CORPUSCULAR VOLUME 89.4 fL (80.0-94.0); MEAN PLATELET VOLUME 8.1 fl (7.4-10.4); MONOCYTES % 4.6 % (2.0-8.0); NEUTROPHILS % 79.9 % (40.0-76.0); PLATELET 195 x1000/uL (130-400); RED BLOOD CELL COUNT 3.49 mill/uL (4.7-6.1); RED CELL DISTRIBUTION WIDTH 13.6 % (11.6-14.6)
[2021-09-03 08:00] VITALS: BP 131/95
[2021-09-03 08:08] LABS: CHLORIDE 98 mEq/L (98-107)
[2021-09-03] MEDS: FINASTERIDE 5MG TABLET PO SCH (08:17)
[2021-09-03] MEDS: THIAMINE HCL 100MG TABLET PO SCH (08:17)
[2021-09-03] MEDS: TAMSULOSIN HCL 0.4MG SR CAPSULE PO SCH (08:17)
[2021-09-03] MEDS: AZITHROMYCIN 250 MG TABLET PO SCH (08:17)
[2021-09-03 08:21] LABS: PHOSPHORUS 1.6 mg/dL (2.5-4.9)
[2021-09-03] MEDS: ACETYLCYSTEINE 100MG/ML 10% VIAL 4ML INH SCH ×2 (09:04→20:20)
[2021-09-03] MEDS: ONDANSETRON HCL 4MG/2ML INJ IV PRN ×2 (09:41→15:02)
[2021-09-03] MEDS ORDERED: SODIUM POLYSTYRENE SULFONATE 15 G/60 ML BOT PO NR (10:30)
[2021-09-03 12:00] VITALS: BP 118/83
[2021-09-03] MEDS ORDERED: MAGNESIUM 2 G PREMIX 50 ML IV NR (12:00)
[2021-09-03] MEDS: DEXTROSE 50% WATER 50ML SYRINGE IV PRN (12:13)
[2021-09-03 16:00] VITALS: BP 140/99
[2021-09-03 19:42] LABS: TOTAL IRON BINDING CAPACITY 101 ug/dL (250-450)
[2021-09-03 20:00] VITALS: BP 130/89
[2021-09-03 20:10] LABS: FOLIC ACID (FOLATE) SERUM 11.6 ng/mL (>5.38)
[2021-09-03] MEDS: CEFTRIAXONE 1,000 MG in DEXTROSE 5% WATER 50 ML IV SCH (21:06)
[2021-09-04] VITALS: BP 127/89
[2021-09-04] MEDS: IPRATROPIUM/ALBUTEROL 0.5-3(2.5)MG/3ML NEB HHN SCH ×4 (00:30→21:25)
[2021-09-04] MEDS: MORPHINE SULFATE 2 MG/ML CPJ (NOT FOR IM USE) IV PRN ×3 (03:02→11:12)
[2021-09-04] MEDS: BLOOD SUGAR DIAGNOSTIC STRIP TEST SCH ×5 (03:02→20:51)
[2021-09-04 04:00] VITALS: BP 133/88
[2021-09-04] MEDS: ONDANSETRON HCL 4MG/2ML INJ IV PRN ×3 (06:51→20:47)
[2021-09-04] MEDS: ACETYLCYSTEINE 100MG/ML 10% VIAL 4ML INH SCH ×2 (07:36→21:25)
[2021-09-04] MEDS: INSULIN LISPRO 100 UNITS/ML SUBCUT SCH ×6 (07:40→17:43)
[2021-09-04 07:48] VITALS: BP 129/92
[2021-09-04] MEDS: THIAMINE HCL 100MG TABLET PO SCH (08:53)
[2021-09-04] MEDS: TAMSULOSIN HCL 0.4MG SR CAPSULE PO SCH (08:53)
[2021-09-04] MEDS: FINASTERIDE 5MG TABLET PO SCH (08:54)
[2021-09-04] MEDS: DIPHENHYDRAMINE 50MG/ML VIAL IV PRN ×3 (10:11→20:42)
[2021-09-04 10:48] LABS: BASOPHILS % 0.1 % (0.0-2.0); EOSINOPHILS % 0.2 % (0.0-5.0); HEMATOCRIT. 30.5 % (42.0-52.0); HEMOGLOBIN. 10.4 g/dL (14.0-18.0); MEAN CORPUSCULAR HEMOGLOBIN 30.1 pg (28.0-32.0); MEAN CORPUSCULAR VOLUME 88.1 fL (80.0-94.0); MEAN PLATELET VOLUME 7.7 fl (7.4-10.4); MONOCYTES % 5.2 % (2.0-8.0); NEUTROPHILS % 80.5 % (40.0-76.0); PLATELET 202 x1000/uL (130-400); RED BLOOD CELL COUNT 3.47 mill/uL (4.7-6.1); RED CELL DISTRIBUTION WIDTH 13.8 % (11.6-14.6)
[2021-09-04 10:59] LABS: CHLORIDE 99 mEq/L (98-107)
[2021-09-04 11:05] LABS: PHOSPHORUS 1.7 mg/dL (2.5-4.9)
[2021-09-04] MEDS: DEXTROSE 50% WATER 50ML SYRINGE IV PRN (11:54)
[2021-09-04 12:10] VITALS: BP 119/86
[2021-09-04] MEDS ORDERED: MAGNESIUM 2 G PREMIX 50 ML IV ONE (14:00)
[2021-09-04] MEDS: ACETAMINOPHEN 325MG TABLET PO PRN ×2 (15:33→21:44)
[2021-09-04 15:49] VITALS: BP 131/78
[2021-09-04] MEDS ORDERED: SODIUM PHOS,M-BASIC-D-BASIC 20 MM in DEXT 5% WATER 243.3333 ML IV NR (16:00)
[2021-09-04 20:00] VITALS: BP 128/80
[2021-09-04] MEDS: CEFTRIAXONE 1,000 MG in DEXTROSE 5% WATER 50 ML IV SCH (20:42)
[2021-09-04] MEDS ORDERED: BETAMETHASONE DIPROPIONATE 0.05% LOTION 60ML TOP SCH (21:00)
[2021-09-04] MEDS: BETAMETHASONE VALERATE 0.1% TOP SCH (22:29)
[2021-09-05] VITALS: BP 125/71
[2021-09-05] MEDS: IPRATROPIUM/ALBUTEROL 0.5-3(2.5)MG/3ML NEB HHN SCH ×4 (01:16→20:53)
[2021-09-05] MEDS: BLOOD SUGAR DIAGNOSTIC STRIP TEST SCH ×5 (03:52→21:00)
[2021-09-05] MEDS: ACETAMINOPHEN 325MG TABLET PO PRN ×3 (03:52→16:37)
[2021-09-05] MEDS: ONDANSETRON HCL 4MG/2ML INJ IV PRN ×4 (03:52→20:02)
[2021-09-05 04:00] VITALS: BP 119/85
[2021-09-05 06:40] LABS: BASOPHILS % 0.3 % (0.0-2.0); EOSINOPHILS % 0.2 % (0.0-5.0); HEMATOCRIT. 28.9 % (42.0-52.0); HEMOGLOBIN. 10.2 g/dL (14.0-18.0); LYMPHOCYTES % 18.6 % (20.0-50.0); MEAN CORPUSCULAR HEMOGLOBIN 30.9 pg (28.0-32.0); MEAN CORPUSCULAR VOLUME 87.3 fL (80.0-94.0); MEAN PLATELET VOLUME 7.8 fl (7.4-10.4); MONOCYTES % 6.2 % (2.0-8.0); NEUTROPHILS % 74.7 % (40.0-76.0); PLATELET 165 x1000/uL (130-400); RED BLOOD CELL COUNT 3.31 mill/uL (4.7-6.1); RED CELL DISTRIBUTION WIDTH 13.5 % (11.6-14.6)
[2021-09-05] MEDS: DIPHENHYDRAMINE 50MG/ML VIAL IV PRN ×4 (06:47→20:02)
[2021-09-05 07:36] LABS: CHLORIDE 97 mEq/L (98-107); PHOSPHORUS 1.7 mg/dL (2.5-4.9)
[2021-09-05] MEDS: INSULIN LISPRO 100 UNITS/ML SUBCUT SCH ×6 (07:40→18:05)
[2021-09-05 08:00] VITALS: BP 124/87
[2021-09-05] MEDS: THIAMINE HCL 100MG TABLET PO SCH (08:14)
[2021-09-05] MEDS: FINASTERIDE 5MG TABLET PO SCH (08:19)
[2021-09-05] MEDS: TAMSULOSIN HCL 0.4MG SR CAPSULE PO SCH (08:19)
[2021-09-05] MEDS: BETAMETHASONE VALERATE 0.1% TOP SCH ×2 (08:20→20:02)
[2021-09-05 09:10] LABS: C-PEPTIDE < 0.1 ng/mL (1.1-4.4)
[2021-09-05 12:00] VITALS: BP 114/78
[2021-09-05] MEDS ORDERED: SODIUM PHOS,M-BASIC-D-BASIC 15 MM in DEXT 5% WATER 245 ML IV ONE (13:00)
[2021-09-05] MEDS ORDERED: FUROSEMIDE 40MG/4ML VIAL IVP NR (13:30)
[2021-09-05 16:00] VITALS: BP 114/87
[2021-09-05 20:00] VITALS: BP 133/90
[2021-09-05] MEDS: HYDROCODONE/ACETAMINOPHEN 5/325MG TABLET PO PRN (22:22)
[2021-09-05] MEDS: MAGNESIUM/ALUMINUM HYDROXIDE/SIMETHICONE 30ML UDC PO PRN (22:28)
[2021-09-06] VITALS: BP 138/94
[2021-09-06] MEDS: DIPHENHYDRAMINE 50MG/ML VIAL IV PRN ×5 (00:50→22:42)
[2021-09-06] MEDS: ONDANSETRON HCL 4MG/2ML INJ IV PRN ×4 (01:42→20:42)
[2021-09-06] MEDS: IPRATROPIUM/ALBUTEROL 0.5-3(2.5)MG/3ML NEB HHN SCH ×4 (01:45→20:23)
[2021-09-06] MEDS: HYDROCODONE/ACETAMINOPHEN 5/325MG TABLET PO PRN ×6 (02:17→22:42)
[2021-09-06] MEDS: BLOOD SUGAR DIAGNOSTIC STRIP TEST SCH ×5 (03:00→20:42)
[2021-09-06 04:00] VITALS: BP 139/93
[2021-09-06 07:02] LABS: BASOPHILS % 0.1 % (0.0-2.0); EOSINOPHILS % 0.1 % (0.0-5.0); HEMATOCRIT. 29.3 % (42.0-52.0); HEMOGLOBIN. 10.3 g/dL (14.0-18.0); LYMPHOCYTES % 21.4 % (20.0-50.0); MEAN CORPUSCULAR HEMOGLOBIN 30.8 pg (28.0-32.0); MEAN CORPUSCULAR VOLUME 87.4 fL (80.0-94.0); MEAN PLATELET VOLUME 7.4 fl (7.4-10.4); MONOCYTES % 7.2 % (2.0-8.0); NEUTROPHILS % 71.2 % (40.0-76.0); PLATELET 180 x1000/uL (130-400); RED BLOOD CELL COUNT 3.36 mill/uL (4.7-6.1); RED CELL DISTRIBUTION WIDTH 13.6 % (11.6-14.6)
[2021-09-06] MEDS: INSULIN LISPRO 100 UNITS/ML SUBCUT SCH ×4 (07:29→17:22)
[2021-09-06 07:31] LABS: CHLORIDE 93 mEq/L (98-107)
[2021-09-06 08:00] VITALS: BP 119/99
[2021-09-06] MEDS: FINASTERIDE 5MG TABLET PO SCH (08:14)
[2021-09-06] MEDS: THIAMINE HCL 100MG TABLET PO SCH (08:14)
[2021-09-06] MEDS: PANTOPRAZOLE 40MG DR TABLET PO SCH (08:15)
[2021-09-06] MEDS: TAMSULOSIN HCL 0.4MG SR CAPSULE PO SCH (08:17)
[2021-09-06] MEDS: BETAMETHASONE VALERATE 0.1% TOP SCH ×2 (09:04→20:42)
[2021-09-06 12:00] VITALS: BP 115/85
[2021-09-06] MEDS ORDERED: INSULIN LISPRO 100 UNITS/ML SUBCUT SCH ×2 (13:40→17:00)
[2021-09-06 13:59] LABS: PHOSPHORUS 1.7 mg/dL (2.5-4.9)
[2021-09-06 16:00] VITALS: BP 137/98
[2021-09-06] MEDS ORDERED: MAGNESIUM 2 G PREMIX 50 ML IV NR (18:30)
[2021-09-06] MEDS ORDERED: POTASSIUM PHOS,M-BASIC-D-BASIC 30 MMOL in SODIUM CHLORIDE 0.9% 500 ML IV NR (18:30)
[2021-09-06 20:00] VITALS: BP 141/102
[2021-09-07] VITALS: BP 147/90
[2021-09-07] MEDS: HYDROCODONE/ACETAMINOPHEN 5/325MG TABLET PO PRN ×4 (02:43→18:32)
[2021-09-07] MEDS: ONDANSETRON HCL 4MG/2ML INJ IV PRN ×2 (02:43→11:00)
[2021-09-07] MEDS: BLOOD SUGAR DIAGNOSTIC STRIP TEST SCH ×4 (02:43→17:49)
[2021-09-07] MEDS: DIPHENHYDRAMINE 50MG/ML VIAL IV PRN ×3 (02:43→18:32)
[2021-09-07 04:00] VITALS: BP 108/73
[2021-09-07 07:47] LABS: CHLORIDE 101 mEq/L (98-107)
[2021-09-07 07:53] LABS: PHOSPHORUS 2.7 mg/dL (2.5-4.9)
[2021-09-07 08:00] VITALS: BP 132/92
[2021-09-07] MEDS ORDERED: NON FORMULARY PATIENT HOME MED XX SCH (08:30)
[2021-09-07] MEDS ORDERED: INSULIN LISPRO 100 UNITS/ML SUBCUT SCH (08:40)
[2021-09-07] MEDS: PANTOPRAZOLE 40MG DR TABLET PO SCH (08:56)
[2021-09-07] MEDS: THIAMINE HCL 100MG TABLET PO SCH (08:56)
[2021-09-07] MEDS: TAMSULOSIN HCL 0.4MG SR CAPSULE PO SCH (08:58)
[2021-09-07] MEDS: FINASTERIDE 5MG TABLET PO SCH (08:58)
[2021-09-07] MEDS: INSULIN LISPRO 100 UNITS/ML SUBCUT SCH (09:02)
[2021-09-07] MEDS ORDERED: INSULIN LISPRO SUBCUT SCH ×3 (09:36→17:00)
[2021-09-07] MEDS ORDERED: [UNRECOGNIZED DRUG - OTHER] SUBCUT SCH ×3 (09:36→17:00)
[2021-09-07] MEDS: BETAMETHASONE VALERATE 0.1% TOP SCH (10:10)
[2021-09-07] MEDS: IPRATROPIUM/ALBUTEROL 0.5-3(2.5)MG/3ML NEB HHN SCH ×2 (10:23→14:36)
[2021-09-07 12:00] VITALS: BP 120/80
[2021-09-07] MEDS: [UNRECOGNIZED DRUG - OTHER] SUBCUT SCH ×2 (12:14→17:50)
[2021-09-07] MEDS: INSULIN LISPRO SUBCUT SCH ×2 (12:14→17:50)
[2021-09-07 16:00] VITALS: BP 126/86
[2021-09-07] MEDS ORDERED: TAMS-11 PO (17:56)
[2021-09-07] MEDS ORDERED: FINA5TAB11 PO (17:56)
[2021-09-07] MEDS ORDERED: T3 PO (17:57)
[2021-09-07 20:15] VITALS: BP 117/87
[2021-09-08] MEDS ORDERED: [UNRECOGNIZED DRUG - OTHER] SUBCUT SCH (07:40)
[2021-09-08] MEDS ORDERED: INSULIN LISPRO SUBCUT SCH (07:40)
[2021-09-08] MEDS ORDERED: FAMOTIDINE 20MG TABLET PO SCH (09:00)
== END 2021-09-07 21:30 | disposition home or self-care (01) | DRG 720 ==
LOC: ER 21:43 → 7WST 08-30 01:17 → ENRESERV 08-30 03:36
PROVIDERS: ADMIT Specialist; ATTEND Specialist
DX: A41.9 Sepsis, unspecified organism (principal); J96.00 Acute respiratory failure, unspecified whether with hypoxia or hypercapnia; E43 Unspecified severe protein-calorie malnutrition; K85.90 Acute pancreatitis without necrosis or infection, unspecified; E11.649 Type 2 diabetes mellitus with hypoglycemia without coma; J18.9 Pneumonia, unspecified organism; E87.2 Acidosis; E83.39 Other disorders of phosphorus metabolism; E87.1 Hypo-osmolality and hyponatremia; E86.0 Dehydration; E11.65 Type 2 diabetes mellitus with hyperglycemia; D64.9 Anemia, unspecified; E87.6 Hypokalemia; K86.1 Other chronic pancreatitis; R74.01 Elevation of levels of liver transaminase levels; I10 Essential (primary) hypertension; R33.9 Retention of urine, unspecified; G89.4 Chronic pain syndrome; F10.10 Alcohol abuse, uncomplicated; Y90.9 Presence of alcohol in blood, level not specified; K21.9 Gastro-esophageal reflux disease without esophagitis; F17.210 Nicotine dependence, cigarettes, uncomplicated; N32.89 Other specified disorders of bladder; K59.00 Constipation, unspecified; F12.20 Cannabis dependence, uncomplicated; F11.10 Opioid abuse, uncomplicated; N40.1 Benign prostatic hyperplasia with lower urinary tract symptoms; K74.60 Unspecified cirrhosis of liver; E83.42 Hypomagnesemia; E87.5 Hyperkalemia; K22.10 Ulcer of esophagus without bleeding; Z20.822 Contact with and (suspected) exposure to COVID-19; L30.9 Dermatitis, unspecified; S30.0XXA Contusion of lower back and pelvis, initial encounter; X58.XXXA Exposure to other specified factors, initial encounter; Z88.8 Allergy status to other drugs, medicaments and biological substances; Z79.899 Other long term (current) drug therapy; Z79.1 Long term (current) use of non-steroidal anti-inflammatories (NSAID); Z68.1 Body mass index [BMI] 19.9 or less, adult; Z87.19 Personal history of other diseases of the digestive system; Z71.6 Tobacco abuse counseling; Z79.891 Long term (current) use of opiate analgesic; Y93.89 Activity, other specified; Y92.89 Other specified places as the place of occurrence of the external cause; Y99.8 Other external cause status; Z80.9 Family history of malignant neoplasm, unspecified
CPT/HCPCS: 36415; 71045; 74176; 80048; 80053; 80061; 80305; 80320; 81003; 82010; 82024; 82088; 82105; 82378; 82533; 82550; 82607; 82728; 82746; 82962; 83036; 83540; 83550; 83735; 83880; 83930; 83935; 84100; 84133; 84145; 84153; 84244; 84439; 84443; 84484; 84681; 85025; 86301; 86359; 86360; 86705; 86709; 86803; 87340; 87389; 87426; 93970; 94640; 97112; 97162; 97164; 97166; 97530; 97535; 99285; C1893; J0696; J1200; J1815; J1940; J2270; J2405; J2543; J3370; J3475; J3480; J3490; J7040; J7060; J7608; A4315; G0103; G0480

== ENCOUNTER 2021-09-09 16:06 | Inpatient (IN) | payer SELFPAY ==
[2021-09-09] VITALS (18 sets, daily range): BP systolic 98–170; BP diastolic 38–99
[~2021-09-09] VITALS: Ht 182.9 cm; Wt 44.1 kg
[~2021-09-09 16:06] MED LIST changes: +ETOMIDATE 2MG/ML 10ML VIAL IV ONE; +FINA5TAB11 PO; +SODIUM CHLORIDE 0.9% 10ML VIAL ONE; +SUCCINYLCHOLINE CHLORIDE 200MG/10ML IV ONE; +T3 PO; +TAMS-11 PO; +VECURONIUM BROMIDE 10 MG/VIAL IV ONE
[2021-09-09] MEDS ORDERED: DEXTROSE 50% WATER 50ML SYRINGE IV ONE (16:12)
[2021-09-09] MEDS ORDERED: NOREPINEPHRINE 8MG/250ML PMX 250 ML IV STA (16:24)
[2021-09-09] MEDS ORDERED: NOREPINEPHRINE 8MG/250ML PMX 250 ML IV NR (16:24)
[2021-09-09] MEDS ORDERED: ETOMIDATE 2MG/ML 10ML VIAL IV ONE (16:30)
[2021-09-09] MEDS ORDERED: SUCCINYLCHOLINE CHLORIDE 200MG/10ML IV ONE (16:30)
[2021-09-09] MEDS ORDERED: SODIUM CHLORIDE 0.9% 1000ML BAG (SEPSIS BOLUS) IV ONE (16:30)
[2021-09-09] MEDS ORDERED: VANCOMYCIN 1G PREMIX 200 ML IV ONE (16:30)
[2021-09-09] MEDS ORDERED: PIPERACILLIN/TAZ 3.375G PREMIX 50 ML IV ONE (16:30)
[2021-09-09 16:35] LABS: HEMOGLOBIN. 8.5 g/dL (14.0-18.0); MEAN CORPUSCULAR HEMOGLOBIN 30.3 pg (28.0-32.0); MEAN CORPUSCULAR VOLUME 89.1 fL (80.0-94.0); MEAN PLATELET VOLUME 7.2 fl (7.4-10.4); PLATELET 214 x1000/uL (130-400); RED CELL DISTRIBUTION WIDTH 13.8 % (11.6-14.6)
[2021-09-09 16:43] LABS: CHLORIDE 100 mEq/L (98-107)
[2021-09-09 16:52] LABS: CREATINE KINASE 336 IU/L (39-308); ETHANOL BLOOD < 10 mg/dL
[2021-09-09] MEDS ORDERED: ONDANSETRON HCL 4MG/2ML INJ IV PRN (17:45)
[2021-09-09] MEDS ORDERED: MIDAZOLAM 100MG/100ML PMX 100 ML IV SCH (17:45)
[2021-09-09] MEDS ORDERED: MORPHINE SULFATE 2 MG/ML CPJ (NOT FOR IM USE) IV PRN (17:45)
[2021-09-09] MEDS ORDERED: MIDAZOLAM HCL 2 MG/2 ML VIAL IV ONE (17:45)
[2021-09-09] MEDS ORDERED: MIDAZOLAM HCL 5 MG/ML VIAL IV NR (17:45)
[2021-09-09] MEDS ORDERED: MIDAZOLAM HCL 100 MG in DEXT 5% WATER 80 ML IV ONE (17:45)
[2021-09-09] MEDS ORDERED: BLOOD SUGAR DIAGNOSTIC STRIP TEST SCH (17:45)
[2021-09-09] MEDS ORDERED: LORAZEPAM 0.5MG TABLET PO PRN (17:45)
[2021-09-09 17:50] LABS: CLARITY URINE TURBID (CLEAR); COLOR URINE YELLOW (YELLOW); KETONES URINE NEGATIVE (NEGATIVE); LEUKOCYTE ESTERASE URINE NEGATIVE (NEGATIVE); NITRITE URINE NEGATIVE (NEGATIVE); OCCULT BLOOD URINE 1+ (NEGATIVE); PROTEIN URINE NEGATIVE (NEGATIVE); SPECIFIC GRAVITY URINE 1.008 (1.005-1.030); UROBILINOGEN URINE 0.2 E.U./dL (0.2-1.0)
[2021-09-09] MEDS ORDERED: MIDAZOLAM HCL 5 MG/5 ML VIAL IV NR (17:50)
[2021-09-09] MEDS ORDERED: NALOXONE HCL 0.4MG/ML VIAL IV PRN (18:00)
[2021-09-09] MEDS ORDERED: SODIUM POLYSTYRENE SULFONATE 15 G/60 ML BOT PO NR (18:00)
[2021-09-09 18:03] LABS: *AMPHETAMINES SCREEN URINE NEGATIVE (NEGATIVE); *BARBITURATES SCREEN URINE NEGATIVE (NEGATIVE); *BENZODIAZEPINES SCREEN URINE NEGATIVE (NEGATIVE); *COCAINE SCREEN URINE NEGATIVE (NEGATIVE); CANNABINOID URINE SCREEN NEGATIVE (NEGATIVE); METHADONE URINE SCREEN NEGATIVE (NEGATIVE); OPIATES URINE SCREEN NEGATIVE (NEGATIVE); PHENCYCLIDINE URINE SCREEN NEGATIVE (NEGATIVE)
[2021-09-09] MEDS ORDERED: INSULIN LISPRO 100 UNITS/ML SUBCUT SCH (18:20)
[2021-09-09 20:54] LABS: BG BASE EXCESS 3.8 mmol/L (-2.0-2.0); BG CARBOXYHEMOGLOBIN 0.2 % (0.5-1.5); BG DEOXYHEMOGLOBIN 1.1 % (0.0-5.0); BG FRACTION INSPIRED OXYGEN 100; BG HCO3 ACT 26.3 mmol/L (22.0-26.0); BG METHEMOGLOBIN 0.2 % (0.0-1.5); BG OXYGEN SATURATION 98.9 % (92.0-98.5); BG OXYHEMOGLOBIN 98.5 % (94.0-97.0); BG PCO2 31.9 mmHg (35.0-45.0); BG PH 7.534 (7.350-7.450); BG PO2 532.1 mmHg (75.0-100.0); BG SAMPLE SITE RIGHT RADIAL; BG TOTAL HEMOGLOBIN 10.1 g/dL (12.0-18.0); BG VENT MODE VENT - AC
[2021-09-09] MEDS ORDERED: SODIUM CHLORIDE 0.9% 1,000 ML IV SCH (21:00)
[2021-09-09] MEDS: LACTULOSE 20G/30ML UDC PO SCH (22:08)
[2021-09-09 22:24] LABS: PLATELET ESTIMATE NORMAL
[2021-09-09] MEDS ORDERED: PIPERACILLIN/TAZ 3.375G PREMIX 50 ML IV NR (23:59)
[2021-09-10] VITALS (87 sets, daily range): BP systolic 67–149; BP diastolic 21–97
[2021-09-10] MEDS ORDERED: BLOOD SUGAR DIAGNOSTIC STRIP TEST SCH
[2021-09-10] MEDS ORDERED: VANCOMYCIN 750 MG in DEXT 5% WATER 250 ML IV SCH ×2
[2021-09-10] MEDS: INSULIN LISPRO 100 UNITS/ML SUBCUT SCH ×6 (00:28→23:51)
[2021-09-10] MEDS: DEXTROSE 50% WATER 50ML SYRINGE IV PRN ×3 (00:33→17:13)
[2021-09-10] MEDS ORDERED: DEXT 5%/0.9% NACL 1,000 ML IV SCH (00:45)
[2021-09-10] MEDS: DEXT 10% WATER 1,000 ML IV SCH ×2 (01:03→17:14)
[2021-09-10] MEDS: BLOOD SUGAR DIAGNOSTIC STRIP TEST SCH ×11 (01:13→23:51)
[2021-09-10 05:38] LABS: HEMATOCRIT. 26.2 % (42.0-52.0); HEMOGLOBIN. 8.8 g/dL (14.0-18.0); MEAN CORPUSCULAR VOLUME 89.5 fL (80.0-94.0); MEAN PLATELET VOLUME 7.4 fl (7.4-10.4); PLATELET 208 x1000/uL (130-400); RED BLOOD CELL COUNT 2.92 mill/uL (4.7-6.1); RED CELL DISTRIBUTION WIDTH 13.9 % (11.6-14.6)
[2021-09-10 05:46] LABS: CHLORIDE 103 mEq/L (98-107)
[2021-09-10] MEDS: LACTULOSE 20G/30ML UDC PO SCH ×3 (05:59→22:02)
[2021-09-10] MEDS: PIPERACILLIN/TAZOBACTAM 3.375G in DEXT 5% WATER 50ML IV SCH ×3 (05:59→22:02)
[2021-09-10] MEDS ORDERED: PIPERACILLIN/TAZOBACTAM 3.375G in DEXT 5% WATER 50ML IV SCH (06:00)
[2021-09-10] MEDS ORDERED: POTASSIUM CHLORIDE INJ 40 MEQ in DEXT 5% WATER 250 ML IV ONE (06:45)
[2021-09-10] MEDS ORDERED: POTASSIUM CHLORIDE 20MEQ TABLET SR PO NR (06:45)
[2021-09-10] MEDS ORDERED: CALCIUM 1250MG TABLET (500MG ELEMENTAL CALCIUM) PO NR (08:00)
[2021-09-10] MEDS: KCL 20MEQ/100ML PREMIX 100 ML IV SCH ×2 (08:01→10:43)
[2021-09-10] MEDS: PANTOPRAZOLE SODIUM 40 MG/VIAL IV SCH (08:04)
[2021-09-10 09:27] LABS: PLATELET ESTIMATE NORMAL
[2021-09-10 10:06] LABS: BG BASE EXCESS 0.7 mmol/L (-2.0-2.0); BG CARBOXYHEMOGLOBIN 0.1 % (0.5-1.5); BG DEOXYHEMOGLOBIN 0.8 % (0.0-5.0); BG FRACTION INSPIRED OXYGEN 50; BG HCO3 ACT 23.2 mmol/L (22.0-26.0); BG METHEMOGLOBIN 0.3 % (0.0-1.5); BG OXYGEN SATURATION 99.2 % (92.0-98.5); BG OXYHEMOGLOBIN 98.8 % (94.0-97.0); BG PCO2 28.2 mmHg (35.0-45.0); BG PH 7.533 (7.350-7.450); BG PO2 224.4 mmHg (75.0-100.0); BG SAMPLE SITE RIGHT BRACHIAL; BG TOTAL HEMOGLOBIN 7.4 g/dL (12.0-18.0); BG VENT MODE VENT - AC
[2021-09-10] MEDS: VANCOMYCIN 500MG PREMIX 100 ML IV SCH ×2 (10:43→17:13)
[2021-09-10 21:15] LABS: CHLORIDE 104 mEq/L (98-107)
[2021-09-11] VITALS (85 sets, daily range): BP systolic 50–190; BP diastolic 17–116
[2021-09-11] MEDS: VANCOMYCIN 500MG PREMIX 100 ML IV SCH ×2 (01:10→09:00)
[2021-09-11] MEDS ORDERED: KCL 20MEQ/100ML PREMIX 100 ML IV NR (02:00)
[2021-09-11] MEDS: BLOOD SUGAR DIAGNOSTIC STRIP TEST SCH ×5 (03:16→20:14)
[2021-09-11] MEDS: INSULIN LISPRO 100 UNITS/ML SUBCUT SCH ×5 (03:17→20:00)
[2021-09-11] MEDS: PIPERACILLIN/TAZOBACTAM 3.375G in DEXT 5% WATER 50ML IV SCH ×3 (05:08→21:50)
[2021-09-11] MEDS: LACTULOSE 20G/30ML UDC PO SCH ×3 (05:08→21:49)
[2021-09-11 05:22] LABS: HEMATOCRIT. 29.9 % (42.0-52.0); HEMOGLOBIN. 9.9 g/dL (14.0-18.0); MEAN CORPUSCULAR HEMOGLOBIN 29.7 pg (28.0-32.0); MEAN PLATELET VOLUME 7.4 fl (7.4-10.4); PLATELET 222 x1000/uL (130-400); RED BLOOD CELL COUNT 3.33 mill/uL (4.7-6.1); RED CELL DISTRIBUTION WIDTH 13.9 % (11.6-14.6)
[2021-09-11 05:49] LABS: CHLORIDE 104 mEq/L (98-107)
[2021-09-11] MEDS: KCL 20MEQ/100ML PREMIX 200 ML IV SCH ×2 (08:59→10:44)
[2021-09-11] MEDS ORDERED: CALCIUM 1250MG TABLET (500MG ELEMENTAL CALCIUM) PO SCH (09:00)
[2021-09-11] MEDS: PANTOPRAZOLE SODIUM 40 MG/VIAL IV SCH (09:00)
[2021-09-11] MEDS: CALCIUM CARBONATE 1,250 MG/5 ML UDC PO SCH (09:00)
[2021-09-11] MEDS: IPRATROPIUM/ALBUTEROL 0.5-3(2.5)MG/3ML NEB HHN PRN ×3 (09:19→16:47)
[2021-09-11 10:38] LABS: PLATELET ESTIMATE NORMAL
[2021-09-11] MEDS: DEXT 10% WATER 1,000 ML IV SCH (10:43)
[2021-09-11] MEDS: NOREPINEPHRINE 8 MG in DEXT 5% WATER 242 ML IV PRN (10:45)
[2021-09-11] MEDS ORDERED: LIDOCAINE HCL 1% 10 MG/ML 10ML VIAL ONE (10:55)
[2021-09-11] MEDS: ACETAMINOPHEN 650MG/20.3ML UDC PO PRN (15:16)
[2021-09-11] MEDS ORDERED: VANCOMYCIN 500MG PREMIX 100 ML IV SCH (23:00)
[2021-09-12] VITALS (96 sets, daily range): BP systolic 49–151; BP diastolic 17–104
[2021-09-12] MEDS: BLOOD SUGAR DIAGNOSTIC STRIP TEST SCH ×5 (00:33→20:38)
[2021-09-12] MEDS: INSULIN LISPRO 100 UNITS/ML SUBCUT SCH ×5 (01:15→20:36)
[2021-09-12] MEDS: DEXT 10% WATER 1,000 ML IV SCH ×2 (04:37→19:58)
[2021-09-12 06:00] LABS: HEMATOCRIT. 28.3 % (42.0-52.0); HEMOGLOBIN. 9.6 g/dL (14.0-18.0); MEAN CORPUSCULAR HEMOGLOBIN 30.3 pg (28.0-32.0); MEAN CORPUSCULAR VOLUME 89.1 fL (80.0-94.0); MEAN PLATELET VOLUME 7.6 fl (7.4-10.4); PLATELET 230 x1000/uL (130-400); RED BLOOD CELL COUNT 3.17 mill/uL (4.7-6.1); RED CELL DISTRIBUTION WIDTH 14.7 % (11.6-14.6)
[2021-09-12 06:27] LABS: CHLORIDE 105 mEq/L (98-107)
[2021-09-12] MEDS: LACTULOSE 20G/30ML UDC PO SCH (06:27)
[2021-09-12] MEDS: PIPERACILLIN/TAZOBACTAM 3.375G in DEXT 5% WATER 50ML IV SCH (06:27)
[2021-09-12] MEDS ORDERED: POTASSIUM CHLORIDE 20MEQ/PACKET PO SCH (07:30)
[2021-09-12] MEDS: PANTOPRAZOLE SODIUM 40 MG/VIAL IV SCH (08:18)
[2021-09-12] MEDS: DEXTROSE 50% WATER 50ML SYRINGE IV PRN (08:18)
[2021-09-12] MEDS: ASCORBIC ACID 500 MG TABLET PO SCH (08:18)
[2021-09-12] MEDS: ZINC SULFATE 220 MG ( 50 ) CAPSULE PO SCH (08:19)
[2021-09-12] MEDS: CALCIUM CARBONATE 1,250 MG/5 ML UDC PO SCH (08:19)
[2021-09-12 08:28] LABS: BG BASE EXCESS 2.1 mmol/L (-2.0-2.0); BG CARBOXYHEMOGLOBIN 0.3 % (0.5-1.5); BG DEOXYHEMOGLOBIN 6.4 % (0.0-5.0); BG FRACTION INSPIRED OXYGEN 40; BG HCO3 ACT 24.4 mmol/L (22.0-26.0); BG METHEMOGLOBIN 0.3 % (0.0-1.5); BG OXYGEN SATURATION 93.6 % (92.0-98.5); BG PCO2 30.6 mmHg (35.0-45.0); BG PO2 67.4 mmHg (75.0-100.0); BG SAMPLE SITE LEFT RADIAL; BG TOTAL HEMOGLOBIN 11.5 g/dL (12.0-18.0); BG VENT MODE VENT - AC
[2021-09-12 09:49] LABS: CHLORIDE 104 mEq/L (98-107)
[2021-09-12] MEDS: IPRATROPIUM/ALBUTEROL 0.5-3(2.5)MG/3ML NEB HHN SCH ×2 (10:17→14:00)
[2021-09-12] MEDS: VANCOMYCIN 500MG PREMIX 100 ML IV SCH ×2 (10:20→20:00)
[2021-09-12] MEDS: KCL 20MEQ/100ML PREMIX 100 ML IV SCH ×3 (10:21→17:04)
[2021-09-12] MEDS ORDERED: KCL 20MEQ/100ML PREMIX 100 ML IV NR (11:30)
[2021-09-12] MEDS ORDERED: MAGNESIUM 4 G PREMIX 100 ML IV NR (12:00)
[2021-09-12] MEDS: MEROPENEM 500 MG in SODIUM CHLORIDE 0.9% 50 ML IV SCH ×2 (14:08→22:19)
[2021-09-12 15:07] LABS: PHOSPHORUS 1.1 mg/dL (2.5-4.9)
[2021-09-12 20:46] LABS: PLATELET ESTIMATE NORMAL
[2021-09-13] VITALS (93 sets, daily range): BP systolic 111–146; BP diastolic 61–91
[2021-09-13] MEDS: BLOOD SUGAR DIAGNOSTIC STRIP TEST SCH ×7 (00:11→23:52)
[2021-09-13] MEDS: NOREPINEPHRINE 8 MG in DEXT 5% WATER 242 ML IV PRN (00:44)
[2021-09-13] MEDS ORDERED: POTASSIUM CHLORIDE 20MEQ TABLET SR PO NR ×2 (02:00→08:15)
[2021-09-13] MEDS ORDERED: IOHEXOL-300 100 ML BOTTLE ONE (03:20)
[2021-09-13] MEDS: INSULIN LISPRO 100 UNITS/ML SUBCUT SCH ×7 (05:45→23:52)
[2021-09-13] MEDS: MEROPENEM 500 MG in SODIUM CHLORIDE 0.9% 50 ML IV SCH ×3 (05:45→22:00)
[2021-09-13 05:47] LABS: CHLORIDE 105 mEq/L (98-107)
[2021-09-13] MEDS: IPRATROPIUM/ALBUTEROL 0.5-3(2.5)MG/3ML NEB HHN SCH ×3 (08:02→20:57)
[2021-09-13 08:05] LABS: BG BASE EXCESS 3.4 mmol/L (-2.0-2.0); BG CARBOXYHEMOGLOBIN 0.3 % (0.5-1.5); BG DEOXYHEMOGLOBIN 1.3 % (0.0-5.0); BG HCO3 ACT 25.2 mmol/L (22.0-26.0); BG METHEMOGLOBIN 0.3 % (0.0-1.5); BG OXYGEN SATURATION 98.7 % (92.0-98.5); BG OXYHEMOGLOBIN 98.1 % (94.0-97.0); BG PCO2 28.7 mmHg (35.0-45.0); BG PH 7.562 (7.350-7.450); BG PO2 200.4 mmHg (75.0-100.0); BG SAMPLE SITE RIGHT BRACHIAL; BG TOTAL HEMOGLOBIN 9.5 g/dL (12.0-18.0); BG VENT MODE VENT - SIMV
[2021-09-13] MEDS ORDERED: POTASSIUM CHLORIDE INJ 40 MEQ in DEXT 5% WATER 250 ML IV ONE (08:15)
[2021-09-13] MEDS: PANTOPRAZOLE SODIUM 40 MG/VIAL IV SCH (08:27)
[2021-09-13] MEDS: ASCORBIC ACID 500 MG TABLET PO SCH (08:27)
[2021-09-13] MEDS: THIAMINE HCL 100MG TABLET PO SCH (08:27)
[2021-09-13] MEDS: FOLIC ACID 1MG TABLET PO SCH (08:28)
[2021-09-13] MEDS: CALCIUM CARBONATE 1,250 MG/5 ML UDC PO SCH (08:28)
[2021-09-13] MEDS: ZINC SULFATE 220 MG ( 50 ) CAPSULE PO SCH (08:28)
[2021-09-13] MEDS: MULTIVITAMINS,THER W-MINERALS TABLET PO SCH (08:31)
[2021-09-13] MEDS: VANCOMYCIN 500MG PREMIX 100 ML IV SCH ×2 (08:31→20:27)
[2021-09-13 09:42] LABS: HEMATOCRIT. 25.6 % (42.0-52.0); HEMOGLOBIN. 8.7 g/dL (14.0-18.0); MEAN CORPUSCULAR HEMOGLOBIN 30.2 pg (28.0-32.0); MEAN CORPUSCULAR VOLUME 89.1 fL (80.0-94.0); MEAN PLATELET VOLUME 7.2 fl (7.4-10.4); PLATELET 128 x1000/uL (130-400); RED BLOOD CELL COUNT 2.88 mill/uL (4.7-6.1); RED CELL DISTRIBUTION WIDTH 14.6 % (11.6-14.6)
[2021-09-13] MEDS: KCL 20MEQ/100ML X 2 FOR TOTAL KCL 40MEQ/200ML IV SCH ×2 (11:35→13:44)
[2021-09-13] MEDS: DEXT 10% WATER 1,000 ML IV SCH (11:36)
[2021-09-13 13:13] LABS: PLATELET ESTIMATE SLIGHTLY DECREASED
[2021-09-14] VITALS (48 sets, daily range): BP systolic 106–164; BP diastolic 30–111
[2021-09-14] MEDS: IPRATROPIUM/ALBUTEROL 0.5-3(2.5)MG/3ML NEB HHN SCH ×4 (02:14→20:18)
[2021-09-14] MEDS: BLOOD SUGAR DIAGNOSTIC STRIP TEST SCH ×5 (04:00→20:57)
[2021-09-14] MEDS: INSULIN LISPRO 100 UNITS/ML SUBCUT SCH ×5 (05:20→21:02)
[2021-09-14] MEDS: DEXT 10% WATER 1,000 ML IV SCH (05:39)
[2021-09-14 05:53] LABS: BASOPHILS % 0.3 % (0.0-2.0); EOSINOPHILS % 0.1 % (0.0-5.0); HEMATOCRIT. 26.8 % (42.0-52.0); LYMPHOCYTES % 7.8 % (20.0-50.0); MEAN CORPUSCULAR HEMOGLOBIN 30.8 pg (28.0-32.0); MEAN PLATELET VOLUME 7.8 fl (7.4-10.4); MONOCYTES % 5.2 % (2.0-8.0); NEUTROPHILS % 86.6 % (40.0-76.0); PLATELET 108 x1000/uL (130-400); RED BLOOD CELL COUNT 2.91 mill/uL (4.7-6.1); RED CELL DISTRIBUTION WIDTH 14.8 % (11.6-14.6)
[2021-09-14] MEDS: MEROPENEM 500 MG in SODIUM CHLORIDE 0.9% 50 ML IV SCH ×3 (05:57→21:18)
[2021-09-14 06:11] LABS: CHLORIDE 103 mEq/L (98-107)
[2021-09-14] MEDS: VANCOMYCIN 500MG PREMIX 100 ML IV SCH ×2 (07:58→21:15)
[2021-09-14] MEDS: PANTOPRAZOLE SODIUM 40 MG/VIAL IV SCH (08:56)
[2021-09-14] MEDS: THIAMINE HCL 100MG TABLET PO SCH (08:57)
[2021-09-14] MEDS: CALCIUM CARBONATE 1,250 MG/5 ML UDC PO SCH (08:57)
[2021-09-14] MEDS: FOLIC ACID 1MG TABLET PO SCH (08:57)
[2021-09-14] MEDS: ZINC SULFATE 220 MG ( 50 ) CAPSULE PO SCH (08:58)
[2021-09-14] MEDS: ASCORBIC ACID 500 MG TABLET PO SCH (08:58)
[2021-09-14] MEDS: MULTIVITAMINS,THER W-MINERALS TABLET PO SCH (08:59)
[2021-09-14 09:41] LABS: BG BASE EXCESS 0.1 mmol/L (-2.0-2.0); BG CARBOXYHEMOGLOBIN 0.3 % (0.5-1.5); BG DEOXYHEMOGLOBIN 1.5 % (0.0-5.0); BG FRACTION INSPIRED OXYGEN 30; BG HCO3 ACT 22.2 mmol/L (22.0-26.0); BG METHEMOGLOBIN 0.2 % (0.0-1.5); BG OXYGEN SATURATION 98.5 % (92.0-98.5); BG PCO2 27.1 mmHg (35.0-45.0); BG PH 7.531 (7.350-7.450); BG PO2 155.4 mmHg (75.0-100.0); BG SAMPLE SITE RIGHT RADIAL; BG TOTAL HEMOGLOBIN 9.2 g/dL (12.0-18.0); BG VENT MODE VENT - SIMV
[2021-09-14] MEDS: ACETAMINOPHEN 650MG/20.3ML UDC PO PRN (20:53)
[2021-09-14] MEDS: MORPHINE SULFATE 4 MG/ML CPJ (NOT FOR IM USE) IV PRN (21:56)
[2021-09-15] VITALS (48 sets, daily range): BP systolic 136–177; BP diastolic 58–110
[2021-09-15] MEDS: BLOOD SUGAR DIAGNOSTIC STRIP TEST SCH ×6 (00:10→23:59)
[2021-09-15] MEDS: INSULIN LISPRO 100 UNITS/ML SUBCUT SCH ×6 (00:10→23:59)
[2021-09-15] MEDS: IPRATROPIUM/ALBUTEROL 0.5-3(2.5)MG/3ML NEB HHN SCH ×4 (02:18→20:47)
[2021-09-15] MEDS: MEROPENEM 500 MG in SODIUM CHLORIDE 0.9% 50 ML IV SCH ×3 (05:07→21:11)
[2021-09-15] MEDS: MORPHINE SULFATE 4 MG/ML CPJ (NOT FOR IM USE) IV PRN ×3 (05:08→17:15)
[2021-09-15 05:36] LABS: BASOPHILS % 0.1 % (0.0-2.0); EOSINOPHILS % 0.1 % (0.0-5.0); HEMATOCRIT. 25.1 % (42.0-52.0); HEMOGLOBIN. 8.6 g/dL (14.0-18.0); LYMPHOCYTES % 9.9 % (20.0-50.0); MEAN CORPUSCULAR VOLUME 87.2 fL (80.0-94.0); MEAN PLATELET VOLUME 7.8 fl (7.4-10.4); MONOCYTES % 5.5 % (2.0-8.0); NEUTROPHILS % 84.4 % (40.0-76.0); PLATELET 118 x1000/uL (130-400); RED BLOOD CELL COUNT 2.88 mill/uL (4.7-6.1); RED CELL DISTRIBUTION WIDTH 14.4 % (11.6-14.6)
[2021-09-15 05:45] LABS: CHLORIDE 101 mEq/L (98-107)
[2021-09-15] MEDS: PANTOPRAZOLE SODIUM 40 MG/VIAL IV SCH (09:02)
[2021-09-15] MEDS: CALCIUM CARBONATE 1,250 MG/5 ML UDC PO SCH (09:02)
[2021-09-15] MEDS: ZINC SULFATE 220 MG ( 50 ) CAPSULE PO SCH (09:03)
[2021-09-15] MEDS: ASCORBIC ACID 500 MG TABLET PO SCH (09:03)
[2021-09-15] MEDS: FOLIC ACID 1MG TABLET PO SCH (09:03)
[2021-09-15] MEDS: MULTIVITAMINS,THER W-MINERALS TABLET PO SCH (09:03)
[2021-09-15] MEDS: THIAMINE HCL 100MG TABLET PO SCH (09:03)
[2021-09-15] MEDS ORDERED: POTASSIUM CHLORIDE 20MEQ/PACKET PO NR (09:45)
[2021-09-15] MEDS: ENOXAPARIN 30MG/0.3ML SYR SUBCUT SCH (10:12)
[2021-09-15] MEDS: AMLODIPINE 10MG TABLET PO SCH (10:12)
[2021-09-15 11:15] LABS: BG CARBOXYHEMOGLOBIN 0.3 % (0.5-1.5); BG DEOXYHEMOGLOBIN 1.8 % (0.0-5.0); BG HCO3 ACT 25.6 mmol/L (22.0-26.0); BG METHEMOGLOBIN 0.2 % (0.0-1.5); BG OXYGEN SATURATION 98.2 % (92.0-98.5); BG OXYHEMOGLOBIN 97.7 % (94.0-97.0); BG PCO2 32.3 mmHg (35.0-45.0); BG PH 7.517 (7.350-7.450); BG PO2 135.1 mmHg (75.0-100.0); BG SAMPLE SITE RIGHT RADIAL; BG TOTAL HEMOGLOBIN 10.8 g/dL (12.0-18.0); BG VENT MODE VENT - CPAP
[2021-09-15] MEDS: HYDRALAZINE HCL 50MG TABLET PO SCH ×2 (17:15→21:11)
[2021-09-15 20:14] LABS: INR 1.3; PROTHROMBIN TIME 13.5 sec (9.6-11.0)
[2021-09-16] VITALS (57 sets, daily range): BP systolic 117–158; BP diastolic 58–96
[2021-09-16] MEDS: IPRATROPIUM/ALBUTEROL 0.5-3(2.5)MG/3ML NEB HHN SCH ×5 (02:21→20:53)
[2021-09-16 05:44] LABS: HEMATOCRIT. 25.8 % (42.0-52.0); HEMOGLOBIN. 8.8 g/dL (14.0-18.0); MEAN CORPUSCULAR HEMOGLOBIN 30.4 pg (28.0-32.0); MEAN CORPUSCULAR VOLUME 88.8 fL (80.0-94.0); PLATELET 184 x1000/uL (130-400); RED CELL DISTRIBUTION WIDTH 14.7 % (11.6-14.6)
[2021-09-16 05:52] LABS: CHLORIDE 102 mEq/L (98-107)
[2021-09-16] MEDS: INSULIN LISPRO 100 UNITS/ML SUBCUT SCH ×3 (05:56→18:16)
[2021-09-16] MEDS: BLOOD SUGAR DIAGNOSTIC STRIP TEST SCH ×4 (05:56→23:32)
[2021-09-16] MEDS: MEROPENEM 500 MG in SODIUM CHLORIDE 0.9% 50 ML IV SCH ×3 (05:56→23:31)
[2021-09-16] MEDS ORDERED: NALOXONE HCL 0.4MG/ML VIAL IV PRN (08:00)
[2021-09-16] MEDS: ENOXAPARIN 30MG/0.3ML SYR SUBCUT SCH (08:15)
[2021-09-16] MEDS: ASCORBIC ACID 500 MG TABLET PO SCH (08:16)
[2021-09-16] MEDS: PANTOPRAZOLE SODIUM 40 MG/VIAL IV SCH (08:16)
[2021-09-16] MEDS: THIAMINE HCL 100MG TABLET PO SCH (08:16)
[2021-09-16] MEDS: ZINC SULFATE 220 MG ( 50 ) CAPSULE PO SCH (08:16)
[2021-09-16] MEDS: FOLIC ACID 1MG TABLET PO SCH (08:16)
[2021-09-16] MEDS: AMLODIPINE 10MG TABLET PO SCH (08:16)
[2021-09-16] MEDS: MULTIVITAMINS,THER W-MINERALS TABLET PO SCH (08:16)
[2021-09-16] MEDS: HYDRALAZINE HCL 50MG TABLET PO SCH ×2 (08:17→21:00)
[2021-09-16 10:22] LABS: PLATELET ESTIMATE NORMAL
[2021-09-16 11:14] LABS: CHLORIDE 104 mEq/L (98-107)
[2021-09-16] MEDS: CALCIUM CARBONATE 1,250 MG/5 ML UDC PO SCH (13:23)
[2021-09-16 14:42] LABS: BG BASE EXCESS 2.8 mmol/L (-2.0-2.0); BG CARBOXYHEMOGLOBIN 0.3 % (0.5-1.5); BG DEOXYHEMOGLOBIN 30.3 % (0.0-5.0); BG FRACTION INSPIRED OXYGEN 100; BG HCO3 ACT 26.5 mmol/L (22.0-26.0); BG METHEMOGLOBIN 0.3 % (0.0-1.5); BG OXYGEN SATURATION 69.5 % (92.0-98.5); BG OXYHEMOGLOBIN 69.1 % (94.0-97.0); BG PCO2 37.2 mmHg (35.0-45.0); BG PH 7.471 (7.350-7.450); BG PO2 36.1 mmHg (75.0-100.0); BG SAMPLE SITE RIGHT RADIAL; BG TOTAL HEMOGLOBIN 10.4 g/dL (12.0-18.0); BG VENT MODE MASK - NRB
[2021-09-16 15:54] LABS: BG BASE EXCESS 2.7 mmol/L (-2.0-2.0); BG CARBOXYHEMOGLOBIN 0.3 % (0.5-1.5); BG DEOXYHEMOGLOBIN 1.2 % (0.0-5.0); BG FRACTION INSPIRED OXYGEN 100; BG HCO3 ACT 25.4 mmol/L (22.0-26.0); BG METHEMOGLOBIN 0.2 % (0.0-1.5); BG OXYGEN SATURATION 98.8 % (92.0-98.5); BG OXYHEMOGLOBIN 98.3 % (94.0-97.0); BG PH 7.518 (7.350-7.450); BG SAMPLE SITE RIGHT RADIAL; BG TOTAL HEMOGLOBIN 9.6 g/dL (12.0-18.0); BG VENT MODE MASK - NRB
[2021-09-16] MEDS: MORPHINE SULFATE 4 MG/ML CPJ (NOT FOR IM USE) IV PRN (23:30)
[2021-09-16] MEDS: DEXTROSE 50% WATER 50ML SYRINGE IV PRN (23:33)
[2021-09-17] VITALS (74 sets, daily range): BP systolic 62–136; BP diastolic 44–94
[2021-09-17] MEDS: IPRATROPIUM/ALBUTEROL 0.5-3(2.5)MG/3ML NEB HHN SCH ×5 (00:34→16:55)
[2021-09-17] MEDS: ACETYLCYSTEINE 100MG/ML 10% VIAL 4ML INH SCH ×4 (00:35→22:00)
[2021-09-17 05:55] LABS: CHLORIDE 107 mEq/L (98-107)
[2021-09-17] MEDS: INSULIN LISPRO 100 UNITS/ML SUBCUT SCH ×5 (06:00→23:38)
[2021-09-17] MEDS: BLOOD SUGAR DIAGNOSTIC STRIP TEST SCH ×4 (06:11→23:26)
[2021-09-17] MEDS: MEROPENEM 500 MG in SODIUM CHLORIDE 0.9% 50 ML IV SCH ×3 (06:35→21:31)
[2021-09-17] MEDS: SODIUM CHLORIDE 3% FOR INH 4ML UD NEB INH SCH ×4 (08:50→20:00)
[2021-09-17 09:10] LABS: HEMATOCRIT. 27.7 % (42.0-52.0); HEMOGLOBIN. 9.4 g/dL (14.0-18.0); MEAN CORPUSCULAR HEMOGLOBIN 30.2 pg (28.0-32.0); MEAN CORPUSCULAR VOLUME 89.6 fL (80.0-94.0); MEAN PLATELET VOLUME 9.1 fl (7.4-10.4); PLATELET 169 x1000/uL (130-400); RED BLOOD CELL COUNT 3.09 mill/uL (4.7-6.1); RED CELL DISTRIBUTION WIDTH 14.8 % (11.6-14.6)
[2021-09-17 09:58] LABS: PLATELET ESTIMATE NORMAL
[2021-09-17] MEDS: PANTOPRAZOLE SODIUM 40 MG/VIAL IV SCH (11:07)
[2021-09-17] MEDS: ENOXAPARIN 30MG/0.3ML SYR SUBCUT SCH (11:08)
[2021-09-17] MEDS: ZINC SULFATE 220 MG ( 50 ) CAPSULE PO SCH (11:08)
[2021-09-17] MEDS: AMLODIPINE 10MG TABLET PO SCH (11:08)
[2021-09-17] MEDS: FOLIC ACID 1MG TABLET PO SCH (11:08)
[2021-09-17] MEDS: HYDRALAZINE HCL 50MG TABLET PO SCH ×2 (11:09→21:31)
[2021-09-17] MEDS: ASCORBIC ACID 500 MG TABLET PO SCH (11:09)
[2021-09-17] MEDS: MULTIVITAMINS,THER W-MINERALS TABLET PO SCH (11:09)
[2021-09-17] MEDS: THIAMINE HCL 100MG TABLET PO SCH (11:09)
[2021-09-17] MEDS: CALCIUM CARBONATE 1,250 MG/5 ML UDC PO SCH (11:10)
[2021-09-17 14:15] LABS: BG BASE EXCESS 4.7 mmol/L (-2.0-2.0); BG DEOXYHEMOGLOBIN 20.6 % (0.0-5.0); BG HCO3 ACT 27.7 mmol/L (22.0-26.0); BG METHEMOGLOBIN 0.3 % (0.0-1.5); BG OXYGEN SATURATION 79.3 % (92.0-98.5); BG OXYHEMOGLOBIN 79.1 % (94.0-97.0); BG PCO2 35.4 mmHg (35.0-45.0); BG PH 7.512 (7.350-7.450); BG PO2 41.5 mmHg (75.0-100.0); BG SAMPLE SITE RIGHT RADIAL; BG TOTAL HEMOGLOBIN 11.1 g/dL (12.0-18.0); BG VENT MODE NASAL CANNULA
[2021-09-18] VITALS (40 sets, daily range): BP systolic 94–141; BP diastolic 46–95
[2021-09-18] MEDS: SODIUM CHLORIDE 3% FOR INH 4ML UD NEB INH SCH ×6 (00:33→21:01)
[2021-09-18] MEDS: IPRATROPIUM/ALBUTEROL 0.5-3(2.5)MG/3ML NEB HHN SCH ×6 (00:33→21:01)
[2021-09-18] MEDS: BLOOD SUGAR DIAGNOSTIC STRIP TEST SCH ×5 (04:00→20:00)
[2021-09-18] MEDS: MEROPENEM 500 MG in SODIUM CHLORIDE 0.9% 50 ML IV SCH ×2 (05:22→13:12)
[2021-09-18] MEDS: INSULIN LISPRO 100 UNITS/ML SUBCUT SCH ×5 (05:23→20:00)
[2021-09-18 05:53] LABS: HEMATOCRIT. 30.5 % (42.0-52.0); HEMOGLOBIN. 10.2 g/dL (14.0-18.0); MEAN CORPUSCULAR HEMOGLOBIN 30.2 pg (28.0-32.0); MEAN CORPUSCULAR VOLUME 90.5 fL (80.0-94.0); MEAN PLATELET VOLUME 9.4 fl (7.4-10.4); PLATELET 219 x1000/uL (130-400); RED BLOOD CELL COUNT 3.37 mill/uL (4.7-6.1); RED CELL DISTRIBUTION WIDTH 15.2 % (11.6-14.6)
[2021-09-18 06:07] LABS: CHLORIDE 107 mEq/L (98-107)
[2021-09-18 06:12] LABS: PHOSPHORUS 2.9 mg/dL (2.5-4.9)
[2021-09-18] MEDS: ACETYLCYSTEINE 100MG/ML 10% VIAL 4ML INH SCH ×2 (08:45→16:53)
[2021-09-18] MEDS: THIAMINE HCL 100MG TABLET PO SCH (09:03)
[2021-09-18] MEDS: PANTOPRAZOLE SODIUM 40 MG/VIAL IV SCH (09:03)
[2021-09-18] MEDS: HYDRALAZINE HCL 50MG TABLET PO SCH ×2 (09:03→20:50)
[2021-09-18] MEDS: FOLIC ACID 1MG TABLET PO SCH (09:04)
[2021-09-18] MEDS: ASCORBIC ACID 500 MG TABLET PO SCH (09:04)
[2021-09-18] MEDS: ZINC SULFATE 220 MG ( 50 ) CAPSULE PO SCH (09:04)
[2021-09-18] MEDS: AMLODIPINE 10MG TABLET PO SCH (09:04)
[2021-09-18] MEDS: CALCIUM CARBONATE 1,250 MG/5 ML UDC PO SCH (09:04)
[2021-09-18] MEDS: MULTIVITAMINS,THER W-MINERALS TABLET PO SCH (09:04)
[2021-09-18] MEDS: ENOXAPARIN 30MG/0.3ML SYR SUBCUT SCH (09:05)
[2021-09-18 10:35] LABS: BG BASE EXCESS 5.6 mmol/L (-2.0-2.0); BG DEOXYHEMOGLOBIN 6.1 % (0.0-5.0); BG HCO3 ACT 27.6 mmol/L (22.0-26.0); BG METHEMOGLOBIN 0.2 % (0.0-1.5); BG OXYGEN SATURATION 93.9 % (92.0-98.5); BG OXYHEMOGLOBIN 93.7 % (94.0-97.0); BG PCO2 31.6 mmHg (35.0-45.0); BG PH 7.559 (7.350-7.450); BG PO2 66.8 mmHg (75.0-100.0); BG SAMPLE SITE RIGHT BRACHIAL; BG VENT MODE NASAL CANNULA
[2021-09-18 12:37] LABS: PLATELET ESTIMATE NORMAL
[2021-09-18] MEDS: DEXTROSE 50% WATER 50ML SYRINGE IV PRN (13:09)
[2021-09-18] MEDS ORDERED: MORPHINE SULFATE 2 MG/ML CPJ (NOT FOR IM USE) IV PRN (17:15)
[2021-09-18] MEDS ORDERED: VANCOMYCIN 1G PREMIX 200 ML IV NR (20:00)
[2021-09-19] VITALS (12 sets, daily range): BP systolic 98–127; BP diastolic 59–87
[2021-09-19] MEDS: MEROPENEM 500 MG in SODIUM CHLORIDE 0.9% 50 ML IV SCH ×4 (00:09→21:26)
[2021-09-19] MEDS: SODIUM CHLORIDE 3% FOR INH 4ML UD NEB INH SCH ×4 (00:50→12:06)
[2021-09-19] MEDS: ACETYLCYSTEINE 100MG/ML 10% VIAL 4ML INH SCH ×3 (00:50→15:55)
[2021-09-19] MEDS: IPRATROPIUM/ALBUTEROL 0.5-3(2.5)MG/3ML NEB HHN SCH ×6 (00:50→20:18)
[2021-09-19] MEDS: BLOOD SUGAR DIAGNOSTIC STRIP TEST SCH ×5 (03:53→17:02)
[2021-09-19] MEDS: INSULIN LISPRO 100 UNITS/ML SUBCUT SCH ×5 (03:54→16:00)
[2021-09-19] MEDS ORDERED: VANCOMYCIN 500MG PREMIX 100 ML IV SCH (04:00)
[2021-09-19 07:40] LABS: CHLORIDE 109 mEq/L (98-107)
[2021-09-19 08:58] LABS: BG BASE EXCESS 6.7 mmol/L (-2.0-2.0); BG CARBOXYHEMOGLOBIN 0.3 % (0.5-1.5); BG DEOXYHEMOGLOBIN 4.7 % (0.0-5.0); BG FRACTION INSPIRED OXYGEN 50; BG METHEMOGLOBIN 0.2 % (0.0-1.5); BG OXYGEN SATURATION 95.3 % (92.0-98.5); BG OXYHEMOGLOBIN 94.8 % (94.0-97.0); BG PCO2 37.9 mmHg (35.0-45.0); BG PH 7.516 (7.350-7.450); BG PO2 77.6 mmHg (75.0-100.0); BG SAMPLE SITE RIGHT RADIAL; BG TOTAL HEMOGLOBIN 10.2 g/dL (12.0-18.0); BG VENT MODE MASK - SIMPLE
[2021-09-19] MEDS: AMLODIPINE 10MG TABLET PO SCH (09:00)
[2021-09-19] MEDS: HYDRALAZINE HCL 50MG TABLET PO SCH ×2 (09:00→21:00)
[2021-09-19] MEDS: CALCIUM CARBONATE 1,250 MG/5 ML UDC PO SCH (09:00)
[2021-09-19 09:19] LABS: HEMATOCRIT. 28.9 % (42.0-52.0); HEMOGLOBIN. 9.7 g/dL (14.0-18.0); MEAN CORPUSCULAR HEMOGLOBIN 30.7 pg (28.0-32.0); MEAN CORPUSCULAR VOLUME 91.4 fL (80.0-94.0); MEAN PLATELET VOLUME 10.3 fl (7.4-10.4); PLATELET 141 x1000/uL (130-400); RED BLOOD CELL COUNT 3.16 mill/uL (4.7-6.1); RED CELL DISTRIBUTION WIDTH 15.1 % (11.6-14.6)
[2021-09-19] MEDS: PANTOPRAZOLE SODIUM 40 MG/VIAL IV SCH (10:06)
[2021-09-19] MEDS: TAMSULOSIN HCL 0.4MG SR CAPSULE PO SCH (10:07)
[2021-09-19] MEDS: MULTIVITAMINS,THER W-MINERALS TABLET PO SCH (10:07)
[2021-09-19] MEDS: ASCORBIC ACID 500 MG TABLET PO SCH (10:07)
[2021-09-19] MEDS: THIAMINE HCL 100MG TABLET PO SCH (10:08)
[2021-09-19] MEDS: FOLIC ACID 1MG TABLET PO SCH (10:08)
[2021-09-19] MEDS: FINASTERIDE 5MG TABLET PO SCH (10:08)
[2021-09-19] MEDS: ZINC SULFATE 220 MG ( 50 ) CAPSULE PO SCH (10:09)
[2021-09-19] MEDS: ENOXAPARIN 30MG/0.3ML SYR SUBCUT SCH (10:19)
[2021-09-19] MEDS: VANCOMYCIN 500MG PREMIX 100 ML IV SCH (17:43)
[2021-09-19 22:13] LABS: PLATELET ESTIMATE NORMAL
[2021-09-20] VITALS (12 sets, daily range): BP systolic 90–108; BP diastolic 67–82
[2021-09-20] MEDS: IPRATROPIUM/ALBUTEROL 0.5-3(2.5)MG/3ML NEB HHN SCH ×6 (00:04→20:10)
[2021-09-20] MEDS: ACETYLCYSTEINE 100MG/ML 10% VIAL 4ML INH SCH ×2 (00:04→08:04)
[2021-09-20] MEDS: BLOOD SUGAR DIAGNOSTIC STRIP TEST SCH ×4 (00:29→17:45)
[2021-09-20 03:51] LABS: CHLORIDE 109 mEq/L (98-107)
[2021-09-20] MEDS: MEROPENEM 500 MG in SODIUM CHLORIDE 0.9% 50 ML IV SCH ×3 (05:08→21:18)
[2021-09-20] MEDS: VANCOMYCIN 500MG PREMIX 100 ML IV SCH ×2 (05:08→17:52)
[2021-09-20] MEDS: INSULIN LISPRO 100 UNITS/ML SUBCUT SCH ×4 (06:00→17:45)
[2021-09-20] MEDS: AMLODIPINE 10MG TABLET PO SCH (09:00)
[2021-09-20] MEDS: HYDRALAZINE HCL 50MG TABLET PO SCH ×2 (09:00→21:00)
[2021-09-20] MEDS: CALCIUM CARBONATE 1,250 MG/5 ML UDC PO SCH (09:00)
[2021-09-20] MEDS ORDERED: GADOTERATE MEGLUMINE 5 MMOL/10 ML VIAL IV ONE (10:26)
[2021-09-20] MEDS: PANTOPRAZOLE SODIUM 40 MG/VIAL IV SCH (11:43)
[2021-09-20] MEDS: MULTIVITAMINS,THER W-MINERALS TABLET PO SCH (11:44)
[2021-09-20] MEDS: ASCORBIC ACID 500 MG TABLET PO SCH (11:44)
[2021-09-20] MEDS: ZINC SULFATE 220 MG ( 50 ) CAPSULE PO SCH (11:44)
[2021-09-20] MEDS: TAMSULOSIN HCL 0.4MG SR CAPSULE PO SCH (11:46)
[2021-09-20] MEDS: THIAMINE HCL 100MG TABLET PO SCH (11:47)
[2021-09-20] MEDS: FINASTERIDE 5MG TABLET PO SCH (12:37)
[2021-09-20] MEDS: ENOXAPARIN 30MG/0.3ML SYR SUBCUT SCH (12:38)
[2021-09-20] MEDS: DEXTROSE 50% WATER 50ML SYRINGE IV PRN (17:03)
[2021-09-21] VITALS (12 sets, daily range): BP systolic 93–118; BP diastolic 40–82
[2021-09-21] MEDS: ACETYLCYSTEINE 100MG/ML 10% VIAL 4ML INH SCH ×4 (00:29→16:47)
[2021-09-21] MEDS: IPRATROPIUM/ALBUTEROL 0.5-3(2.5)MG/3ML NEB HHN SCH ×6 (00:29→20:33)
[2021-09-21] MEDS: BLOOD SUGAR DIAGNOSTIC STRIP TEST SCH ×4 (00:59→17:10)
[2021-09-21] MEDS: DEXTROSE 50% WATER 50ML SYRINGE IV PRN ×3 (00:59→17:27)
[2021-09-21] MEDS: VANCOMYCIN 500MG PREMIX 100 ML IV SCH ×2 (05:10→17:10)
[2021-09-21] MEDS: MEROPENEM 500 MG in SODIUM CHLORIDE 0.9% 50 ML IV SCH ×3 (05:10→22:51)
[2021-09-21] MEDS: INSULIN LISPRO 100 UNITS/ML SUBCUT SCH ×4 (06:00→17:28)
[2021-09-21 06:32] LABS: HEMATOCRIT. 33.3 % (42.0-52.0); HEMOGLOBIN. 11.1 g/dL (14.0-18.0); MEAN CORPUSCULAR HEMOGLOBIN 30.6 pg (28.0-32.0); MEAN CORPUSCULAR VOLUME 92.2 fL (80.0-94.0); MEAN PLATELET VOLUME 9.8 fl (7.4-10.4); PLATELET 213 x1000/uL (130-400); RED BLOOD CELL COUNT 3.61 mill/uL (4.7-6.1); RED CELL DISTRIBUTION WIDTH 15.6 % (11.6-14.6)
[2021-09-21 06:51] LABS: CHLORIDE 109 mEq/L (98-107)
[2021-09-21] MEDS: AMLODIPINE 10MG TABLET PO SCH (09:00)
[2021-09-21] MEDS: HYDRALAZINE HCL 50MG TABLET PO SCH ×2 (09:00→21:00)
[2021-09-21] MEDS: PANTOPRAZOLE SODIUM 40 MG/VIAL IV SCH (09:16)
[2021-09-21] MEDS: CALCIUM CARBONATE 1,250 MG/5 ML UDC PO SCH (09:17)
[2021-09-21] MEDS: MULTIVITAMINS,THER W-MINERALS TABLET PO SCH (09:17)
[2021-09-21] MEDS: FINASTERIDE 5MG TABLET PO SCH (09:18)
[2021-09-21] MEDS: ZINC SULFATE 220 MG ( 50 ) CAPSULE PO SCH (09:18)
[2021-09-21] MEDS: THIAMINE HCL 100MG TABLET PO SCH (09:18)
[2021-09-21] MEDS: TAMSULOSIN HCL 0.4MG SR CAPSULE PO SCH (09:18)
[2021-09-21] MEDS: ASCORBIC ACID 500 MG TABLET PO SCH (09:18)
[2021-09-21] MEDS: ENOXAPARIN 30MG/0.3ML SYR SUBCUT SCH (09:40)
[2021-09-21] MEDS: DOXYCYCLINE HYCLATE 100MG CAPSULE PO SCH (17:14)
[2021-09-21] MEDS ORDERED: DEXT 5%/0.45% NACL 500ML 1,000 ML IV ONE (17:45)
[2021-09-21 22:41] LABS: PLATELET ESTIMATE NORMAL
[2021-09-22] VITALS (10 sets, daily range): BP systolic 91–134; BP diastolic 57–82
[2021-09-22] MEDS: IPRATROPIUM/ALBUTEROL 0.5-3(2.5)MG/3ML NEB HHN SCH ×6 (00:52→21:03)
[2021-09-22] MEDS: MEROPENEM 500 MG in SODIUM CHLORIDE 0.9% 50 ML IV SCH ×3 (05:24→22:22)
[2021-09-22] MEDS: VANCOMYCIN 500MG PREMIX 100 ML IV SCH ×2 (05:24→17:03)
[2021-09-22] MEDS: DEXTROSE 50% WATER 50ML SYRINGE IV PRN (05:50)
[2021-09-22] MEDS: INSULIN LISPRO 100 UNITS/ML SUBCUT SCH ×4 (06:00→17:14)
[2021-09-22] MEDS: BLOOD SUGAR DIAGNOSTIC STRIP TEST SCH ×4 (06:08→17:13)
[2021-09-22] MEDS: HYDRALAZINE HCL 50MG TABLET PO SCH ×2 (09:00→22:22)
[2021-09-22] MEDS: AMLODIPINE 10MG TABLET PO SCH (09:00)
[2021-09-22] MEDS: ENOXAPARIN 30MG/0.3ML SYR SUBCUT SCH (09:27)
[2021-09-22] MEDS: PANTOPRAZOLE SODIUM 40 MG/VIAL IV SCH (09:28)
[2021-09-22] MEDS: TAMSULOSIN HCL 0.4MG SR CAPSULE PO SCH (09:29)
[2021-09-22] MEDS: CALCIUM CARBONATE 1,250 MG/5 ML UDC PO SCH (09:30)
[2021-09-22] MEDS: THIAMINE HCL 100MG TABLET PO SCH (09:30)
[2021-09-22] MEDS: ASCORBIC ACID 500 MG TABLET PO SCH (09:30)
[2021-09-22] MEDS: DOXYCYCLINE HYCLATE 100MG CAPSULE PO SCH ×2 (09:30→17:03)
[2021-09-22] MEDS: ZINC SULFATE 220 MG ( 50 ) CAPSULE PO SCH (09:31)
[2021-09-22] MEDS: FINASTERIDE 5MG TABLET PO SCH (09:31)
[2021-09-22] MEDS: MULTIVITAMINS,THER W-MINERALS TABLET PO SCH (09:34)
[2021-09-22] MEDS: DEXT 5%/0.45% NACL 1000ML 1,000 ML IV SCH (11:49)
[2021-09-23] VITALS (16 sets, daily range): BP systolic 92–126; BP diastolic 33–86
[2021-09-23] MEDS: BLOOD SUGAR DIAGNOSTIC STRIP TEST SCH ×4 (00:47→17:35)
[2021-09-23] MEDS: IPRATROPIUM/ALBUTEROL 0.5-3(2.5)MG/3ML NEB HHN SCH ×6 (00:50→20:58)
[2021-09-23] MEDS: INSULIN LISPRO 100 UNITS/ML SUBCUT SCH ×4 (06:00→17:35)
[2021-09-23] MEDS: MEROPENEM 500 MG in SODIUM CHLORIDE 0.9% 50 ML IV SCH ×3 (06:48→21:54)
[2021-09-23] MEDS: VANCOMYCIN 500MG PREMIX 100 ML IV SCH ×2 (06:49→17:34)
[2021-09-23] MEDS: DEXT 5%/0.45% NACL 1000ML 1,000 ML IV SCH ×2 (06:50→21:53)
[2021-09-23 07:05] LABS: BASOPHILS % 0.2 % (0.0-2.0); EOSINOPHILS % 0.1 % (0.0-5.0); HEMATOCRIT. 27.8 % (42.0-52.0); HEMOGLOBIN. 9.6 g/dL (14.0-18.0); MEAN CORPUSCULAR HEMOGLOBIN 30.9 pg (28.0-32.0); MEAN CORPUSCULAR VOLUME 89.3 fL (80.0-94.0); MEAN PLATELET VOLUME 9.4 fl (7.4-10.4); MONOCYTES % 4.4 % (2.0-8.0); NEUTROPHILS % 84.3 % (40.0-76.0); PLATELET 190 x1000/uL (130-400); RED BLOOD CELL COUNT 3.11 mill/uL (4.7-6.1); RED CELL DISTRIBUTION WIDTH 15.1 % (11.6-14.6)
[2021-09-23 08:24] LABS: CHLORIDE 98 mEq/L (98-107)
[2021-09-23] MEDS: TAMSULOSIN HCL 0.4MG SR CAPSULE PO SCH (09:00)
[2021-09-23] MEDS: HYDRALAZINE HCL 50MG TABLET PO SCH ×2 (09:00→21:54)
[2021-09-23] MEDS: AMLODIPINE 10MG TABLET PO SCH (09:00)
[2021-09-23] MEDS: ASCORBIC ACID 500 MG TABLET PO SCH (09:31)
[2021-09-23] MEDS: DOXYCYCLINE HYCLATE 100MG CAPSULE PO SCH ×2 (09:31→17:34)
[2021-09-23] MEDS: ZINC SULFATE 220 MG ( 50 ) CAPSULE PO SCH (09:32)
[2021-09-23] MEDS: MULTIVITAMINS,THER W-MINERALS TABLET PO SCH (09:33)
[2021-09-23] MEDS: PANTOPRAZOLE SODIUM 40 MG/VIAL IV SCH (09:33)
[2021-09-23] MEDS: CALCIUM CARBONATE 1,250 MG/5 ML UDC PO SCH (09:34)
[2021-09-23] MEDS: THIAMINE HCL 100MG TABLET PO SCH (09:36)
[2021-09-23] MEDS: FINASTERIDE 5MG TABLET PO SCH (09:37)
[2021-09-23] MEDS: ENOXAPARIN 30MG/0.3ML SYR SUBCUT SCH (10:00)
[2021-09-23] MEDS: POTASSIUM CHLORIDE 20MEQ TABLET SR PO SCH ×3 (11:26→17:34)
[2021-09-23] MEDS: DEXTROSE 50% WATER 50ML SYRINGE IV PRN (17:35)
[2021-09-24] VITALS (9 sets, daily range): BP systolic 89–112; BP diastolic 39–78
[2021-09-24] MEDS: IPRATROPIUM/ALBUTEROL 0.5-3(2.5)MG/3ML NEB HHN SCH ×5 (01:16→20:39)
[2021-09-24] MEDS: MEROPENEM 500 MG in SODIUM CHLORIDE 0.9% 50 ML IV SCH ×3 (05:31→21:03)
[2021-09-24] MEDS: INSULIN LISPRO 100 UNITS/ML SUBCUT SCH ×4 (06:00→17:41)
[2021-09-24] MEDS: BLOOD SUGAR DIAGNOSTIC STRIP TEST SCH ×4 (06:43→17:41)
[2021-09-24 07:40] LABS: BASOPHILS % 0.2 % (0.0-2.0); HEMATOCRIT. 28.3 % (42.0-52.0); HEMOGLOBIN. 9.7 g/dL (14.0-18.0); LYMPHOCYTES % 9.7 % (20.0-50.0); MEAN CORPUSCULAR HEMOGLOBIN 30.9 pg (28.0-32.0); MEAN CORPUSCULAR VOLUME 89.8 fL (80.0-94.0); MEAN PLATELET VOLUME 9.3 fl (7.4-10.4); MONOCYTES % 5.7 % (2.0-8.0); NEUTROPHILS % 84.4 % (40.0-76.0); PLATELET 191 x1000/uL (130-400); RED BLOOD CELL COUNT 3.15 mill/uL (4.7-6.1); RED CELL DISTRIBUTION WIDTH 15.3 % (11.6-14.6)
[2021-09-24 07:42] LABS: INR 1.4; PROTHROMBIN TIME 14.9 sec (9.6-11.0)
[2021-09-24 08:04] LABS: CHLORIDE 101 mEq/L (98-107)
[2021-09-24] MEDS: AMLODIPINE 10MG TABLET PO SCH (09:00)
[2021-09-24] MEDS: HYDRALAZINE HCL 50MG TABLET PO SCH ×2 (09:00→21:03)
[2021-09-24] MEDS: TAMSULOSIN HCL 0.4MG SR CAPSULE PO SCH (09:33)
[2021-09-24] MEDS: ZINC SULFATE 220 MG ( 50 ) CAPSULE PO SCH (09:33)
[2021-09-24] MEDS: MULTIVITAMINS,THER W-MINERALS TABLET PO SCH (09:33)
[2021-09-24] MEDS: PANTOPRAZOLE SODIUM 40 MG/VIAL IV SCH (09:33)
[2021-09-24] MEDS: THIAMINE HCL 100MG TABLET PO SCH (09:33)
[2021-09-24] MEDS: FINASTERIDE 5MG TABLET PO SCH (09:33)
[2021-09-24] MEDS: ASCORBIC ACID 500 MG TABLET PO SCH (09:33)
[2021-09-24] MEDS: CALCIUM CARBONATE 1,250 MG/5 ML UDC PO SCH (09:36)
[2021-09-24] MEDS: ENOXAPARIN 30MG/0.3ML SYR SUBCUT SCH (10:11)
[2021-09-24] MEDS: DOXYCYCLINE HYCLATE 100MG CAPSULE PO SCH ×2 (10:11→17:57)
[2021-09-24] MEDS: DEXT 5%/0.45% NACL 1000ML 1,000 ML IV SCH (21:04)
[2021-09-25] VITALS (12 sets, daily range): BP systolic 91–120; BP diastolic 67–87
[2021-09-25] MEDS: IPRATROPIUM/ALBUTEROL 0.5-3(2.5)MG/3ML NEB HHN SCH ×5 (04:40→21:04)
[2021-09-25] MEDS: MEROPENEM 500 MG in SODIUM CHLORIDE 0.9% 50 ML IV SCH ×2 (05:30→13:37)
[2021-09-25] MEDS: BLOOD SUGAR DIAGNOSTIC STRIP TEST SCH ×4 (05:31→18:43)
[2021-09-25] MEDS: INSULIN LISPRO 100 UNITS/ML SUBCUT SCH ×4 (05:31→18:00)
[2021-09-25 07:09] LABS: BASOPHILS % 0.3 % (0.0-2.0); EOSINOPHILS % 0.1 % (0.0-5.0); HEMATOCRIT. 26.6 % (42.0-52.0); HEMOGLOBIN. 9.2 g/dL (14.0-18.0); LYMPHOCYTES % 10.7 % (20.0-50.0); MEAN CORPUSCULAR HEMOGLOBIN 31.1 pg (28.0-32.0); MEAN CORPUSCULAR VOLUME 90.1 fL (80.0-94.0); MEAN PLATELET VOLUME 9.8 fl (7.4-10.4); MONOCYTES % 5.3 % (2.0-8.0); NEUTROPHILS % 83.6 % (40.0-76.0); PLATELET 186 x1000/uL (130-400); RED BLOOD CELL COUNT 2.95 mill/uL (4.7-6.1); RED CELL DISTRIBUTION WIDTH 15.3 % (11.6-14.6)
[2021-09-25 08:10] LABS: CHLORIDE 104 mEq/L (98-107)
[2021-09-25] MEDS: PANTOPRAZOLE SODIUM 40 MG/VIAL IV SCH (08:49)
[2021-09-25] MEDS: ZINC SULFATE 220 MG ( 50 ) CAPSULE PO SCH (08:49)
[2021-09-25] MEDS: DOXYCYCLINE HYCLATE 100MG CAPSULE PO SCH ×2 (08:49→16:18)
[2021-09-25] MEDS: THIAMINE HCL 100MG TABLET PO SCH (08:49)
[2021-09-25] MEDS: MULTIVITAMINS,THER W-MINERALS TABLET PO SCH (08:49)
[2021-09-25] MEDS: ASCORBIC ACID 500 MG TABLET PO SCH (08:49)
[2021-09-25] MEDS: CALCIUM CARBONATE 1,250 MG/5 ML UDC PO SCH (08:49)
[2021-09-25] MEDS: TAMSULOSIN HCL 0.4MG SR CAPSULE PO SCH (08:50)
[2021-09-25] MEDS: FINASTERIDE 5MG TABLET PO SCH (08:50)
[2021-09-25] MEDS: HYDRALAZINE HCL 50MG TABLET PO SCH ×2 (08:51→21:52)
[2021-09-25] MEDS: AMLODIPINE 10MG TABLET PO SCH (08:52)
[2021-09-25] MEDS: ENOXAPARIN 30MG/0.3ML SYR SUBCUT SCH (09:05)
[2021-09-25] MEDS ORDERED: KCL 20MEQ/100ML PREMIX 100 ML IV NR (13:00)
[2021-09-25] MEDS: HYDROCODONE/ACETAMINOPHEN 5/325MG TABLET PO PRN (15:43)
[2021-09-25 16:48] LABS: HEPATITIS B SURFACE ANTIGEN NEGATIVE
[2021-09-25] MEDS ORDERED: NALOXONE HCL 0.4MG/ML VIAL IV PRN (18:30)
[2021-09-25] MEDS: DEXT 5%/0.45% NACL 1000ML 1,000 ML IV SCH (18:41)
[2021-09-26] VITALS (8 sets, daily range): BP systolic 92–111; BP diastolic 59–76
[2021-09-26] MEDS: IPRATROPIUM/ALBUTEROL 0.5-3(2.5)MG/3ML NEB HHN SCH ×6 (00:33→20:28)
[2021-09-26] MEDS: BLOOD SUGAR DIAGNOSTIC STRIP TEST SCH ×4 (00:55→18:11)
[2021-09-26] MEDS: MEROPENEM 500 MG in SODIUM CHLORIDE 0.9% 50 ML IV SCH (00:55)
[2021-09-26] MEDS: INSULIN LISPRO 100 UNITS/ML SUBCUT SCH ×4 (05:28→18:00)
[2021-09-26 07:19] LABS: CHLORIDE 103 mEq/L (98-107)
[2021-09-26 07:26] LABS: BASOPHILS % 0.5 % (0.0-2.0); EOSINOPHILS % 0.1 % (0.0-5.0); HEMOGLOBIN. 9.9 g/dL (14.0-18.0); LYMPHOCYTES % 9.8 % (20.0-50.0); MEAN CORPUSCULAR HEMOGLOBIN 30.8 pg (28.0-32.0); MEAN PLATELET VOLUME 9.8 fl (7.4-10.4); MONOCYTES % 4.5 % (2.0-8.0); NEUTROPHILS % 85.1 % (40.0-76.0); PLATELET 214 x1000/uL (130-400); RED BLOOD CELL COUNT 3.22 mill/uL (4.7-6.1); RED CELL DISTRIBUTION WIDTH 15.7 % (11.6-14.6)
[2021-09-26] MEDS: AMLODIPINE 10MG TABLET PO SCH (09:00)
[2021-09-26] MEDS: HYDRALAZINE HCL 50MG TABLET PO SCH ×2 (09:00→20:30)
[2021-09-26] MEDS: CALCIUM CARBONATE 1,250 MG/5 ML UDC PO SCH (09:53)
[2021-09-26] MEDS: PANTOPRAZOLE SODIUM 40 MG/VIAL IV SCH (09:53)
[2021-09-26] MEDS: FINASTERIDE 5MG TABLET PO SCH (09:54)
[2021-09-26] MEDS: ZINC SULFATE 220 MG ( 50 ) CAPSULE PO SCH (09:54)
[2021-09-26] MEDS: THIAMINE HCL 100MG TABLET PO SCH (09:54)
[2021-09-26] MEDS: TAMSULOSIN HCL 0.4MG SR CAPSULE PO SCH (09:54)
[2021-09-26] MEDS: ASCORBIC ACID 500 MG TABLET PO SCH (09:54)
[2021-09-26] MEDS: ENOXAPARIN 30MG/0.3ML SYR SUBCUT SCH (09:54)
[2021-09-26] MEDS: DOXYCYCLINE HYCLATE 100MG CAPSULE PO SCH ×2 (09:54→16:14)
[2021-09-26] MEDS: MULTIVITAMINS,THER W-MINERALS TABLET PO SCH (09:54)
[2021-09-26] MEDS: DEXT 5%/0.45% NACL 1000ML 1,000 ML IV SCH (16:14)
[2021-09-27] VITALS (7 sets, daily range): BP systolic 97–112; BP diastolic 69–83
[2021-09-27] MEDS: IPRATROPIUM/ALBUTEROL 0.5-3(2.5)MG/3ML NEB HHN SCH ×6 (00:27→20:47)
[2021-09-27] MEDS: DEXTROSE 50% WATER 50ML SYRINGE IV PRN ×2 (05:16→15:55)
[2021-09-27] MEDS: INSULIN LISPRO 100 UNITS/ML SUBCUT SCH ×4 (05:32→17:14)
[2021-09-27] MEDS: BLOOD SUGAR DIAGNOSTIC STRIP TEST SCH ×4 (05:32→17:14)
[2021-09-27 06:14] LABS: INR 1.4; PROTHROMBIN TIME 14.6 sec (9.6-11.0)
[2021-09-27 06:17] LABS: BASOPHILS % 0.3 % (0.0-2.0); EOSINOPHILS % 0.1 % (0.0-5.0); HEMOGLOBIN. 9.7 g/dL (14.0-18.0); LYMPHOCYTES % 9.1 % (20.0-50.0); MEAN CORPUSCULAR VOLUME 92.6 fL (80.0-94.0); MEAN PLATELET VOLUME 9.7 fl (7.4-10.4); MONOCYTES % 4.9 % (2.0-8.0); NEUTROPHILS % 85.6 % (40.0-76.0); PLATELET 188 x1000/uL (130-400); RED BLOOD CELL COUNT 3.13 mill/uL (4.7-6.1); RED CELL DISTRIBUTION WIDTH 16.1 % (11.6-14.6)
[2021-09-27 06:39] LABS: CHLORIDE 103 mEq/L (98-107)
[2021-09-27] MEDS: AMLODIPINE 10MG TABLET PO SCH (09:00)
[2021-09-27] MEDS: ASCORBIC ACID 500 MG TABLET PO SCH (09:00)
[2021-09-27] MEDS: HYDRALAZINE HCL 50MG TABLET PO SCH ×2 (09:00→20:39)
[2021-09-27] MEDS: DOXYCYCLINE HYCLATE 100MG CAPSULE PO SCH ×2 (09:00→17:48)
[2021-09-27] MEDS: PANTOPRAZOLE SODIUM 40 MG/VIAL IV SCH (09:00)
[2021-09-27] MEDS: MULTIVITAMINS,THER W-MINERALS TABLET PO SCH (09:00)
[2021-09-27] MEDS: THIAMINE HCL 100MG TABLET PO SCH (09:00)
[2021-09-27] MEDS: ZINC SULFATE 220 MG ( 50 ) CAPSULE PO SCH (09:00)
[2021-09-27] MEDS: TAMSULOSIN HCL 0.4MG SR CAPSULE PO SCH (09:00)
[2021-09-27] MEDS: FINASTERIDE 5MG TABLET PO SCH (09:00)
[2021-09-27] MEDS ORDERED: RISPERIDONE 0.5MG TABLET PO SCH (09:00)
[2021-09-27] MEDS: CALCIUM CARBONATE 1,250 MG/5 ML UDC PO SCH (09:00)
[2021-09-27] MEDS: ENOXAPARIN 30MG/0.3ML SYR SUBCUT SCH (10:00)
[2021-09-27] MEDS ORDERED: CEFAZOLIN 1000MG PREMIX 50 ML IV NR (11:00)
[2021-09-27] MEDS: DEXT 5%/0.45% NACL 1000ML 1,000 ML IV SCH (11:30)
[2021-09-27] MEDS ORDERED: MIDAZOLAM HCL 2 MG/2 ML VIAL ONE ×2 (12:20→12:28)
[2021-09-27] MEDS ORDERED: ETOMIDATE 2MG/ML 10ML VIAL IV ONE (12:28)
[2021-09-27] MEDS ORDERED: EPHEDRINE SULFATE 50MG/ML VIAL ONE (12:35)
[2021-09-27] MEDS: METOCLOPRAMIDE HCL 10MG/2ML VIAL IV SCH (17:28)
[2021-09-28] VITALS (14 sets, daily range): BP systolic 89–117; BP diastolic 67–88
[2021-09-28] MEDS: BLOOD SUGAR DIAGNOSTIC STRIP TEST SCH ×4 (00:35→17:14)
[2021-09-28] MEDS: METOCLOPRAMIDE HCL 10MG/2ML VIAL IV SCH ×4 (00:36→17:17)
[2021-09-28] MEDS: IPRATROPIUM/ALBUTEROL 0.5-3(2.5)MG/3ML NEB HHN SCH ×6 (01:39→20:34)
[2021-09-28] MEDS: INSULIN LISPRO 100 UNITS/ML SUBCUT SCH ×4 (05:28→17:18)
[2021-09-28] MEDS: DEXT 5%/0.45% NACL 1000ML 1,000 ML IV SCH (05:54)
[2021-09-28] MEDS: ZINC SULFATE 220 MG ( 50 ) CAPSULE PO SCH (08:58)
[2021-09-28] MEDS: TAMSULOSIN HCL 0.4MG SR CAPSULE PO SCH (08:59)
[2021-09-28] MEDS: AMLODIPINE 10MG TABLET PO SCH (08:59)
[2021-09-28] MEDS: HYDRALAZINE HCL 50MG TABLET PO SCH ×2 (09:00→20:40)
[2021-09-28] MEDS: CALCIUM CARBONATE 1,250 MG/5 ML UDC PO SCH (09:05)
[2021-09-28] MEDS: THIAMINE HCL 100MG TABLET PO SCH (09:06)
[2021-09-28] MEDS: MULTIVITAMINS,THER W-MINERALS TABLET PO SCH (09:12)
[2021-09-28] MEDS: PANTOPRAZOLE SODIUM 40 MG/VIAL IV SCH (09:12)
[2021-09-28] MEDS: DOXYCYCLINE HYCLATE 100MG CAPSULE PO SCH ×2 (09:12→17:18)
[2021-09-28] MEDS: ASCORBIC ACID 500 MG TABLET PO SCH (09:12)
[2021-09-28] MEDS: FINASTERIDE 5MG TABLET PO SCH (09:12)
[2021-09-28] MEDS: DEXTROSE 50% WATER 50ML SYRINGE IV PRN ×2 (11:08→17:15)
[2021-09-28] MEDS: HYDROCODONE/ACETAMINOPHEN 5/325MG TABLET PO PRN (11:21)
[2021-09-28] MEDS: ENOXAPARIN 30MG/0.3ML SYR SUBCUT SCH (11:50)
[2021-09-28] MEDS ORDERED: DEXT 10% WATER 1,000 ML IV SCH (17:48)
[2021-09-28] MEDS ORDERED: SODIUM CHLORIDE 3% FOR INH 4ML UD NEB INH SCH (18:30)
[2021-09-28 18:55] LABS: BG BASE EXCESS 0.2 mmol/L (-2.0-2.0); BG CARBOXYHEMOGLOBIN 0.6 % (0.5-1.5); BG DEOXYHEMOGLOBIN 20.8 % (0.0-5.0); BG FRACTION INSPIRED OXYGEN 40; BG HCO3 ACT 23.4 mmol/L (22.0-26.0); BG METHEMOGLOBIN 0.2 % (0.0-1.5); BG OXYHEMOGLOBIN 78.4 % (94.0-97.0); BG PCO2 33.5 mmHg (35.0-45.0); BG PH 7.462 (7.350-7.450); BG PO2 42.7 mmHg (75.0-100.0); BG SAMPLE SITE LEFT BRACHIAL; BG TOTAL HEMOGLOBIN 12.9 g/dL (12.0-18.0); BG VENT MODE NASAL CANNULA
[2021-09-29] VITALS (30 sets, daily range): BP systolic 59–141; BP diastolic 37–107
[2021-09-29] MEDS: DEXTROSE 50% WATER 50ML SYRINGE IV PRN ×2 (00:03→10:47)
[2021-09-29] MEDS: BLOOD SUGAR DIAGNOSTIC STRIP TEST SCH ×3 (00:03→12:06)
[2021-09-29] MEDS: METOCLOPRAMIDE HCL 10MG/2ML VIAL IV SCH ×3 (00:42→12:00)
[2021-09-29] MEDS: IPRATROPIUM/ALBUTEROL 0.5-3(2.5)MG/3ML NEB HHN SCH ×4 (00:42→11:47)
[2021-09-29] MEDS: ACETYLCYSTEINE 100MG/ML 10% VIAL 4ML INH SCH ×2 (01:02→07:52)
[2021-09-29 05:45] LABS: BG BASE EXCESS -0.9 mmol/L (-2.0-2.0); BG CARBOXYHEMOGLOBIN 0.3 % (0.5-1.5); BG DEOXYHEMOGLOBIN 22.2 % (0.0-5.0); BG FRACTION INSPIRED OXYGEN 100; BG HCO3 ACT 23.7 mmol/L (22.0-26.0); BG METHEMOGLOBIN 0.1 % (0.0-1.5); BG OXYGEN SATURATION 77.7 % (92.0-98.5); BG OXYHEMOGLOBIN 77.4 % (94.0-97.0); BG PCO2 38.9 mmHg (35.0-45.0); BG PH 7.403 (7.350-7.450); BG PO2 44.9 mmHg (75.0-100.0); BG TOTAL HEMOGLOBIN 11.2 g/dL (12.0-18.0); BG VENT MODE MASK - BIPAP
[2021-09-29] MEDS ORDERED: NOREPINEPHRINE 8 MG in DEXT 5% WATER 242 ML IV PRN (06:00)
[2021-09-29] MEDS: INSULIN LISPRO 100 UNITS/ML SUBCUT SCH ×3 (06:00→12:00)
[2021-09-29] MEDS ORDERED: NOREPINEPHRINE 32 MG in DEXT 5% WATER 218 ML IV PRN (06:45)
[2021-09-29] MEDS: PHENYLEPHRINE 100 MG in DEXT 5% WATER 240 ML IV PRN ×2 (06:56→07:17)
[2021-09-29 07:18] LABS: HEMATOCRIT. 30.5 % (42.0-52.0); HEMOGLOBIN. 10.2 g/dL (14.0-18.0); MEAN CORPUSCULAR HEMOGLOBIN 30.5 pg (28.0-32.0); MEAN CORPUSCULAR VOLUME 91.2 fL (80.0-94.0); PLATELET 176 x1000/uL (130-400); RED BLOOD CELL COUNT 3.34 mill/uL (4.7-6.1); RED CELL DISTRIBUTION WIDTH 16.6 % (11.6-14.6)
[2021-09-29] MEDS ORDERED: PIPERACILLIN/TAZOBACTAM 3.375 G in DEXTROSE 5% WATER 50 ML IV SCH (07:30)
[2021-09-29 07:40] LABS: CHLORIDE 100 mEq/L (98-107)
[2021-09-29] MEDS ORDERED: FENTANYL 2500MCG/250ML PMX 250 ML IV PRN (08:00)
[2021-09-29] MEDS ORDERED: VASOPRESSIN 20 UNIT in SODIUM CHLORIDE 0.9% 99 ML IV PRN (08:00)
[2021-09-29] MEDS: HYDRALAZINE HCL 50MG TABLET PO SCH (08:34)
[2021-09-29] MEDS: ZINC SULFATE 220 MG ( 50 ) CAPSULE PO SCH (08:43)
[2021-09-29] MEDS: MULTIVITAMINS,THER W-MINERALS TABLET PO SCH (08:43)
[2021-09-29] MEDS: THIAMINE HCL 100MG TABLET PO SCH (08:43)
[2021-09-29] MEDS: PANTOPRAZOLE SODIUM 40 MG/VIAL IV SCH (08:43)
[2021-09-29] MEDS: ASCORBIC ACID 500 MG TABLET PO SCH (08:43)
[2021-09-29] MEDS: AMLODIPINE 10MG TABLET PO SCH (08:57)
[2021-09-29] MEDS: FINASTERIDE 5MG TABLET PO SCH (08:58)
[2021-09-29] MEDS: TAMSULOSIN HCL 0.4MG SR CAPSULE PO SCH (08:58)
[2021-09-29] MEDS ORDERED: METHYLPREDNISOLONE SOD SUCC 40 MG/ML VIAL IV SCH ×2 (09:00→18:00)
[2021-09-29] MEDS ORDERED: EPINEPHRINE 0.1MG/ML (1:10,000) 10ML SYR ONE (09:16)
[2021-09-29] MEDS ORDERED: ATROPINE SULFATE 1MG/10ML SYR ONE (09:16)
[2021-09-29] MEDS ORDERED: DEXTROSE 50% WATER 50ML SYRINGE IV ONE (09:16)
[2021-09-29] MEDS ORDERED: SODIUM BICARBONATE 8.4% 1 MEQ/ML 50ML SYR IV ONE (09:16)
[2021-09-29] MEDS: CALCIUM CARBONATE 1,250 MG/5 ML UDC PO SCH (09:18)
[2021-09-29] MEDS: ENOXAPARIN 30MG/0.3ML SYR SUBCUT SCH (09:19)
[2021-09-29 09:23] LABS: BG BASE EXCESS -3.3 mmol/L (-2.0-2.0); BG CARBOXYHEMOGLOBIN 0.3 % (0.5-1.5); BG DEOXYHEMOGLOBIN 7.3 % (0.0-5.0); BG HCO3 ACT 22.7 mmol/L (22.0-26.0); BG METHEMOGLOBIN 0.2 % (0.0-1.5); BG OXYGEN SATURATION 92.7 % (92.0-98.5); BG OXYHEMOGLOBIN 92.2 % (94.0-97.0); BG PCO2 44.4 mmHg (35.0-45.0); BG PH 7.327 (7.350-7.450); BG SAMPLE SITE RIGHT RADIAL; BG TOTAL HEMOGLOBIN 13.9 g/dL (12.0-18.0); BG VENT MODE VENT - AC
[2021-09-29 10:01] LABS: PLATELET ESTIMATE NORMAL
[2021-09-29] MEDS ORDERED: DOPAMINE 800MG PREMIX (DOUBLE) 250 ML IV PRN (10:15)
[2021-09-29 12:24] LABS: BG BASE EXCESS -6.1 mmol/L (-2.0-2.0); BG CARBOXYHEMOGLOBIN 0.3 % (0.5-1.5); BG HCO3 ACT 22.5 mmol/L (22.0-26.0); BG METHEMOGLOBIN 0.2 % (0.0-1.5); BG OXYGEN SATURATION 62.8 % (92.0-98.5); BG OXYHEMOGLOBIN 62.5 % (94.0-97.0); BG PCO2 59.4 mmHg (35.0-45.0); BG PH 7.196 (7.350-7.450); BG PO2 41.7 mmHg (75.0-100.0); BG SAMPLE SITE RIGHT RADIAL; BG TOTAL HEMOGLOBIN 11.6 g/dL (12.0-18.0); BG VENT MODE VENT - AC
[2021-09-29] MEDS ORDERED: VANCOMYCIN 500MG PREMIX 100 ML IV SCH (12:30)
[2021-09-29] MEDS ORDERED: EPINEPHRINE 10 MG in SODIUM CHLORIDE 0.9% 240 ML IV PRN (14:30)
== END 2021-09-29 16:30 | DRG 720 ==
LOC: ER 16:06 → MICUNO 17:24 → ENRESERV 17:56 → 5EST 09-18 16:15 → MICUNO 09-29 06:38
PROVIDERS: ADMIT Internal Medicine; ATTEND Internal Medicine
PROC: 5A1955Z Respiratory Ventilation, Greater than 96 Consecutive Hours (ICD-10-PCS; principal; 2021-09-09)
PROC: 02HV33Z Insertion of Infusion Device into Superior Vena Cava, Percutaneous Approach (ICD-10-PCS; 2021-09-11)
PROC: B548ZZA Ultrasonography of Superior Vena Cava, Guidance (ICD-10-PCS; 2021-09-11)
PROC: 4A00X4Z Measurement of Central Nervous Electrical Activity, External Approach (ICD-10-PCS; 2021-09-20)
PROC: 5A12012 Performance of Cardiac Output, Single, Manual (ICD-10-PCS; 2021-09-29)
PROC: 5A09357 Assistance with Respiratory Ventilation, Less than 24 Consecutive Hours, Continuous Positive Airway Pressure (ICD-10-PCS; 2021-09-29)
PROC: 5A1935Z Respiratory Ventilation, Less than 24 Consecutive Hours (ICD-10-PCS; 2021-09-29)
PROC: 0DH63UZ Insertion of Feeding Device into Stomach, Percutaneous Approach (ICD-10-PCS; 2021-09-29)
PROC: 0DB68ZX Excision of Stomach, Via Natural or Artificial Opening Endoscopic, Diagnostic (ICD-10-PCS; 2021-09-29)
DX: A41.9 Sepsis, unspecified organism (principal); J96.01 Acute respiratory failure with hypoxia; R65.21 Severe sepsis with septic shock; J18.9 Pneumonia, unspecified organism; K85.90 Acute pancreatitis without necrosis or infection, unspecified; G93.41 Metabolic encephalopathy; E43 Unspecified severe protein-calorie malnutrition; C25.9 Malignant neoplasm of pancreas, unspecified; E72.20 Disorder of urea cycle metabolism, unspecified; E11.649 Type 2 diabetes mellitus with hypoglycemia without coma; D69.6 Thrombocytopenia, unspecified; E87.1 Hypo-osmolality and hyponatremia; D64.9 Anemia, unspecified; E11.65 Type 2 diabetes mellitus with hyperglycemia; E87.6 Hypokalemia; I10 Essential (primary) hypertension; F17.210 Nicotine dependence, cigarettes, uncomplicated; R62.7 Adult failure to thrive; K86.1 Other chronic pancreatitis; K44.9 Diaphragmatic hernia without obstruction or gangrene; K29.70 Gastritis, unspecified, without bleeding; K86.3 Pseudocyst of pancreas; E88.09 Other disorders of plasma-protein metabolism, not elsewhere classified; Z87.19 Personal history of other diseases of the digestive system; Z86.73 Personal history of transient ischemic attack (TIA), and cerebral infarction without residual deficits; Z85.07 Personal history of malignant neoplasm of pancreas
CPT/HCPCS: 36415; 36573; 36600; 70551; 70552; 71045; 71260; 74176; 76604; 76700; 80048; 80053; 80076; 80202; 80305; 80320; 81003; 82040; 82140; 82248; 82330; 82375; 82550; 82805; 82947; 82962; 83036; 83540; 83550; 83605; 83735; 83880; 84100; 84132; 84134; 84145; 84484; 85025; 86140; 86705; 86709; 86803; 87340; 87426; 87804; 88305; 88312; 88313; 92610; 92950; 93005; 94002; 94003; 94640; 94660; 94667; 97162; 97166; 99291; A9577; C1725; C9113; J0330; J0461; J0690; J1265; J1650; J1815; J2185; J2250; J2270; J2370; J2405; J2543; J2765; J2920; J3010; J3370; J3475; J3480; J3490; J7030; J7040; J7042; J7050; J7060; J7608; Q9967; A5200; G0480